=== PATIENT | female | born 1960 | race Caucasian/White ===

== ENCOUNTER 2018-10-09 13:30 | Inpatient (IN) | payer OTHER, MEDICAID ==
[2018-10-04 14:22] LABS: CREATININE 0.44 mg/dL (0.55-1.30); POTASSIUM 3.5 mmol/L (3.5-5.1)
[2018-10-04 14:23] LABS: BASOPHILS # (AUTO) 0.3 K/uL (0.0-0.2); BASOPHILS % (AUTO) 1.8 % (0.0-2.0); EOSINOPHILS # (AUTO) 0.1 K/uL (0.0-0.4); EOSINOPHILS % (AUTO) 0.7 % (0.0-4.0); HEMATOCRIT 45.8 % (36-48); HEMOGLOBIN 15.3 g/dL (12.0-16.0); LYMPHOCYTES # (AUTO) 5.1 K/uL (1.0-5.5); LYMPHOCYTES % (AUTO) 33.2 % (20.5-51.5); MEAN CORPUSCULAR HEMOGLOBIN 33 pg (27-31); MEAN CORPUSCULAR HGB CONC 33 % (32-36); MEAN CORPUSCULAR VOLUME 98 fL (79.0-98.0); MONOCYTES # (AUTO) 1.5 K/uL (0.0-1.0); MONOCYTES % (AUTO) 9.7 % (1.7-9.3); NEUTROPHILS # (AUTO) 8.3 K/uL (1.8-7.7); NEUTROPHILS % (AUTO) 54.6 % (40.0-70.0); PLATELET COUNT (AUTO) 272 K/uL (130-430); RED BLOOD CELL COUNT(AUTO) 4.68 MIL/uL (4.2-6.2); RED CELL DISTRIBUTION WIDTH 13.3 % (9.0-15.0); WHITE BLOOD COUNT (AUTO) 15.3 K/uL (4.8-10.8)
[~2018-10-09] VITALS: Ht 165.1 cm; Wt 55.3 kg
[2018-10-09 22:15] VITALS: BP_SYST 111
[2018-10-09 23:00] VITALS: BP_SYST 111
[2018-10-10] VITALS (7 sets, daily range): BP systolic 102–135
[2018-10-10] MEDS ORDERED: LORazepam 2 MG/ML VIAL IVP PRN (00:30)
[2018-10-10 01:36] LABS: BASOPHILS # (AUTO) 0.1 K/uL (0.0-0.2); BASOPHILS % (AUTO) 0.5 % (0.0-2.0); EOSINOPHILS % (AUTO) 0.2 % (0.0-4.0); HEMATOCRIT 41.8 % (36-48); LYMPHOCYTES # (AUTO) 3.2 K/uL (1.0-5.5); LYMPHOCYTES % (AUTO) 27.8 % (20.5-51.5); MEAN CORPUSCULAR HEMOGLOBIN 33 pg (27-31); MEAN CORPUSCULAR HGB CONC 34 % (32-36); MEAN CORPUSCULAR VOLUME 97 fL (79.0-98.0); MONOCYTES # (AUTO) 1.2 K/uL (0.0-1.0); MONOCYTES % (AUTO) 10.8 % (1.7-9.3); NEUTROPHILS # (AUTO) 6.9 K/uL (1.8-7.7); NEUTROPHILS % (AUTO) 60.7 % (40.0-70.0); PLATELET COUNT (AUTO) 285 K/uL (130-430); RED BLOOD CELL COUNT(AUTO) 4.29 MIL/uL (4.2-6.2); RED CELL DISTRIBUTION WIDTH 13.8 % (9.0-15.0); WHITE BLOOD COUNT (AUTO) 11.4 K/uL (4.8-10.8)
[2018-10-10 02:03] LABS: PROTHROMBIN TIME 10.3 SECS (9.5-12.5)
[2018-10-10 02:07] LABS: ALBUMIN 2.7 g/dL (3.4-4.8); CALCIUM 8.5 mg/dL (8.4-11.0); CREATININE 0.41 mg/dL (0.55-1.30); POTASSIUM 3.6 mmol/L (3.5-5.1); TOTAL BILIRUBIN 0.6 mg/dL (0.0-1.0)
[2018-10-10] MEDS: KCL 20 mEq in NS 1000 mL 1,000 ML IV SCH ×2 (02:14→13:55)
[2018-10-10] MEDS: ALBUTEROL SULFATE 0.083% 2.5 MG/3 ML VIAL.NEB INH SCH ×6 (02:27→23:27)
[2018-10-10] MEDS: ALBUTEROL SULFATE 0.083% 2.5 MG/3 ML VIAL.NEB INH PRN ×2 (04:15→05:56)
[2018-10-10] MEDS: methylPREDNISolone SOD SUCC/PF 62.5 MG/ML VIAL IVP SCH ×2 (05:05→12:13)
[2018-10-10 07:54] LABS: BILIRUBIN,URINE NEGATIVE (NEGATIVE); BLOOD, URINE NEGATIVE (NEGATIVE); CLARITY/URINE CLEAR (CLEAR); COLOR,URINE YELLOW (YELLOW); GLUCOSE,URINE NEGATIVE (NEGATIVE); KETONES,URINE NEGATIVE (NEGATIVE); LEUKOCYTE ESTERASE ,URINE NEGATIVE (NEGATIVE); NITRITE, URINE NEGATIVE (NEGATIVE); PROTEIN URINE NEGATIVE (NEGATIVE); UROBILINOGEN,URINE 0.2 (0.2-1.0)
[2018-10-10] MEDS: FLUDROCORTISONE ACETATE 0.1 MG TABLET( FLORINEF) PO SCH (08:55)
[2018-10-10] MEDS: PREDNISONE 10 MG TABLET PO SCH (08:56)
[2018-10-10] MEDS: SODIUM CHLORIDE 500 MG TABLET PO SCH ×2 (08:56→21:55)
[2018-10-10] MEDS ORDERED: PROPOFOL 200MG/ 20ML VIAL (DIPRIVAN) IV ONE (16:30)
[2018-10-10] MEDS ORDERED: MIDAZOLAM HCL 5 MG/ML VIAL (VERSED) IV ONE (16:30)
[2018-10-10] MEDS ORDERED: LIDOCAINE/EPI 1% 1:100000 20 ML VIAL INJ ONE (16:30)
[2018-10-10] MEDS ORDERED: fentaNYL CITRATE/PF 100 MCG/2 ML AMP ONE (16:30)
[2018-10-10] MEDS ORDERED: SEVOFLURANE 15 MIN GAS INH ONE (16:30)
[2018-10-10] MEDS ORDERED: NS 1000 ML IV.SOLN IV ONE (16:30)
[2018-10-10] MEDS ORDERED: ROCURONIUM BROMIDE 10 MG/ML (ZEMURON) ONE (16:30)
[2018-10-10] MEDS ORDERED: GLYCOPYRROLATE 0.2 MG/ML VIAL ONE (16:30)
[2018-10-10] MEDS ORDERED: ONDANSETRON HCL 4 MG/2 ML VIAL ONE (16:30)
[2018-10-10] MEDS ORDERED: NS IRRIG SOLN 1000 ML IR ONE (16:30)
[2018-10-10] MEDS ORDERED: NEOSTIGMINE METHYLSULFATE 1 MG/ML, 10 ML VIAL ONE (16:30)
[2018-10-10] MEDS ORDERED: MEPERIDINE HCL/PF 50 MG/ML AMP IVP ONE (17:00)
[2018-10-10] MEDS ORDERED: MEPERIDINE HCL/PF 50 MG/ML AMP ONE (17:06)
[2018-10-10] MEDS ORDERED: HYDROcodone/ACETAMIN 5-325 MG TAB (NORCO/ VICODIN) PO PRN ×2 (21:45)
[2018-10-11] VITALS (22 sets, daily range): BP systolic 91–146
[2018-10-11] MEDS: KCL 20 mEq in NS 1000 mL 1,000 ML IV SCH (02:55)
[2018-10-11] MEDS: ALBUTEROL SULFATE 0.083% 2.5 MG/3 ML VIAL.NEB INH SCH ×6 (03:00→23:50)
[2018-10-11] MEDS: ALBUTEROL SULFATE 0.083% 2.5 MG/3 ML VIAL.NEB INH PRN (05:10)
[2018-10-11] MEDS: methylPREDNISolone SOD SUCC/PF 62.5 MG/ML VIAL IVP SCH ×2 (05:39)
[2018-10-11 06:47] LABS: HEMATOCRIT 43.2 % (36-48); HEMOGLOBIN 13.7 g/dL (12.0-16.0); MEAN CORPUSCULAR HEMOGLOBIN 31 pg (27-31); MEAN CORPUSCULAR HGB CONC 32 % (32-36); MEAN CORPUSCULAR VOLUME 98 fL (79.0-98.0); PLATELET COUNT (AUTO) 332 K/uL (130-430); RED BLOOD CELL COUNT(AUTO) 4.42 MIL/uL (4.2-6.2); RED CELL DISTRIBUTION WIDTH 14.3 % (9.0-15.0)
[2018-10-11 07:03] LABS: ALBUMIN 2.9 g/dL (3.4-4.8); CALCIUM 8.5 mg/dL (8.4-11.0); CREATININE 0.61 mg/dL (0.55-1.30); POTASSIUM 3.4 mmol/L (3.5-5.1); TOTAL BILIRUBIN 0.9 mg/dL (0.0-1.0); URIC ACID 2.6 mg/dL (2.4-7.0)
[2018-10-11 07:08] LABS: WHITE BLOOD COUNT (AUTO) 23.4 K/uL (4.8-10.8)
[2018-10-11] MEDS: PREDNISONE 10 MG TABLET PO SCH (08:15)
[2018-10-11] MEDS: FLUDROCORTISONE ACETATE 0.1 MG TABLET( FLORINEF) PO SCH (08:15)
[2018-10-11 08:33] LABS: ATYPICAL LYMPHOCYTES % 0 % (0-0); BAND % (MANUAL) 6 % (0-6); BASOPHILS % (MANUAL) 0 % (0-2); EOSINOPHILS % (MANUAL) 0 % (0-7); LYMPHOCYTES % (MANUAL) 14 % (20-46); MONOCYTES % (MANUAL) 9 % (0-11)
[2018-10-11] MEDS: SODIUM CHLORIDE 500 MG TABLET PO SCH ×2 (09:27→20:52)
[2018-10-11] MEDS ORDERED: POTASSIUM CHLORIDE 20 MEQ/PKT PACKET PO ONE (14:30)
[2018-10-11] MEDS: methylPREDNISolone SOD SUCC 40 MG/ML VIAL IVP SCH (20:52)
[2018-10-11] MEDS: MORPHINE 4 MG/ML INJ. SYRINGE IVP PRN (23:32)
[2018-10-12] VITALS (12 sets, daily range): BP systolic 101–126
[2018-10-12] MEDS: ALBUTEROL SULFATE 0.083% 2.5 MG/3 ML VIAL.NEB INH SCH ×6 (04:01→23:44)
[2018-10-12 05:45] LABS: BASOPHILS % (AUTO) 0.1 % (0.0-2.0); HEMATOCRIT 41.1 % (36-48); HEMOGLOBIN 13.8 g/dL (12.0-16.0); LYMPHOCYTES # (AUTO) 1.7 K/uL (1.0-5.5); LYMPHOCYTES % (AUTO) 9.4 % (20.5-51.5); MEAN CORPUSCULAR HEMOGLOBIN 33 pg (27-31); MEAN CORPUSCULAR HGB CONC 34 % (32-36); MEAN CORPUSCULAR VOLUME 99 fL (79.0-98.0); MONOCYTES % (AUTO) 5.8 % (1.7-9.3); NEUTROPHILS # (AUTO) 15.1 K/uL (1.8-7.7); NEUTROPHILS % (AUTO) 84.7 % (40.0-70.0); PLATELET COUNT (AUTO) 277 K/uL (130-430); RED BLOOD CELL COUNT(AUTO) 4.16 MIL/uL (4.2-6.2); RED CELL DISTRIBUTION WIDTH 13.8 % (9.0-15.0); WHITE BLOOD COUNT (AUTO) 17.8 K/uL (4.8-10.8)
[2018-10-12 05:49] LABS: ALBUMIN 2.8 g/dL (3.4-4.8); CALCIUM 8.6 mg/dL (8.4-11.0); CREATININE 0.41 mg/dL (0.55-1.30); POTASSIUM 4.4 mmol/L (3.5-5.1); TOTAL BILIRUBIN 0.7 mg/dL (0.0-1.0)
[2018-10-12] MEDS: SODIUM CHLORIDE 500 MG TABLET PO SCH ×2 (08:39→20:56)
[2018-10-12] MEDS: FLUDROCORTISONE ACETATE 0.1 MG TABLET( FLORINEF) PO SCH (08:39)
[2018-10-12] MEDS: methylPREDNISolone SOD SUCC 40 MG/ML VIAL IVP SCH ×2 (08:39→20:56)
[2018-10-12] MEDS: MORPHINE 4 MG/ML INJ. SYRINGE IVP PRN (21:47)
[2018-10-13 00:10] VITALS: BP_SYST 121; BP_SYST 138
[2018-10-13 06:46] LABS: CREATININE 0.3 mg/dL (0.55-1.30); POTASSIUM 3.5 mmol/L (3.5-5.1)
[2018-10-13 06:56] LABS: BASOPHILS # (AUTO) 0.2 K/uL (0.0-0.2); BASOPHILS % (AUTO) 1.4 % (0.0-2.0); EOSINOPHILS % (AUTO) 0.1 % (0.0-4.0); HEMATOCRIT 37.5 % (36-48); HEMOGLOBIN 12.6 g/dL (12.0-16.0); LYMPHOCYTES # (AUTO) 1.3 K/uL (1.0-5.5); LYMPHOCYTES % (AUTO) 7.5 % (20.5-51.5); MEAN CORPUSCULAR HEMOGLOBIN 33 pg (27-31); MEAN CORPUSCULAR HGB CONC 34 % (32-36); MEAN CORPUSCULAR VOLUME 99 fL (79.0-98.0); MONOCYTES # (AUTO) 1.4 K/uL (0.0-1.0); MONOCYTES % (AUTO) 8.3 % (1.7-9.3); NEUTROPHILS # (AUTO) 13.9 K/uL (1.8-7.7); NEUTROPHILS % (AUTO) 82.7 % (40.0-70.0); PLATELET COUNT (AUTO) 261 K/uL (130-430); RED BLOOD CELL COUNT(AUTO) 3.81 MIL/uL (4.2-6.2); RED CELL DISTRIBUTION WIDTH 13.8 % (9.0-15.0); WHITE BLOOD COUNT (AUTO) 16.8 K/uL (4.8-10.8)
[2018-10-13 06:57] LABS: ALBUMIN 2.4 g/dL (3.4-4.8); TOTAL BILIRUBIN 0.6 mg/dL (0.0-1.0)
[2018-10-13 07:08] VITALS: BP_SYST 121
[2018-10-13] MEDS: ALBUTEROL SULFATE 0.083% 2.5 MG/3 ML VIAL.NEB INH SCH ×5 (07:25→23:00)
[2018-10-13 08:00] VITALS: BP_SYST 111
[2018-10-13] MEDS: SODIUM CHLORIDE 500 MG TABLET PO SCH ×2 (08:31→21:08)
[2018-10-13] MEDS: methylPREDNISolone SOD SUCC 40 MG/ML VIAL IVP SCH ×2 (08:31→21:07)
[2018-10-13] MEDS: FLUDROCORTISONE ACETATE 0.1 MG TABLET( FLORINEF) PO SCH (08:31)
[2018-10-13] MEDS: MORPHINE 4 MG/ML INJ. SYRINGE IVP PRN ×2 (09:20→21:09)
[2018-10-13 12:36] VITALS: BP_SYST 112
[2018-10-13 16:30] VITALS: BP_SYST 139
[2018-10-13 20:00] VITALS: BP_SYST 120
[2018-10-14 00:40] VITALS: BP_SYST 130
[2018-10-14] MEDS: ALBUTEROL SULFATE 0.083% 2.5 MG/3 ML VIAL.NEB INH SCH ×6 (03:00→23:38)
[2018-10-14 06:55] LABS: BASOPHILS % (AUTO) 0.2 % (0.0-2.0); EOSINOPHILS % (AUTO) 0.1 % (0.0-4.0); HEMOGLOBIN 13.8 g/dL (12.0-16.0); LYMPHOCYTES # (AUTO) 2.3 K/uL (1.0-5.5); LYMPHOCYTES % (AUTO) 13.7 % (20.5-51.5); MEAN CORPUSCULAR HEMOGLOBIN 33 pg (27-31); MEAN CORPUSCULAR HGB CONC 34 % (32-36); MEAN CORPUSCULAR VOLUME 97 fL (79.0-98.0); MONOCYTES # (AUTO) 1.2 K/uL (0.0-1.0); MONOCYTES % (AUTO) 7.4 % (1.7-9.3); NEUTROPHILS # (AUTO) 13.2 K/uL (1.8-7.7); NEUTROPHILS % (AUTO) 78.6 % (40.0-70.0); PLATELET COUNT (AUTO) 289 K/uL (130-430); RED BLOOD CELL COUNT(AUTO) 4.15 MIL/uL (4.2-6.2); RED CELL DISTRIBUTION WIDTH 13.6 % (9.0-15.0); WHITE BLOOD COUNT (AUTO) 16.7 K/uL (4.8-10.8)
[2018-10-14 07:12] LABS: CALCIUM 8.3 mg/dL (8.4-11.0); CREATININE 0.44 mg/dL (0.55-1.30); POTASSIUM 3.6 mmol/L (3.5-5.1)
[2018-10-14 07:21] LABS: ALBUMIN 2.5 g/dL (3.4-4.8); TOTAL BILIRUBIN 0.6 mg/dL (0.0-1.0)
[2018-10-14 07:52] VITALS: BP_SYST 122
[2018-10-14] MEDS: methylPREDNISolone SOD SUCC 40 MG/ML VIAL IVP SCH ×2 (08:01→21:17)
[2018-10-14] MEDS: SODIUM CHLORIDE 500 MG TABLET PO SCH ×2 (08:01→21:17)
[2018-10-14] MEDS: FLUDROCORTISONE ACETATE 0.1 MG TABLET( FLORINEF) PO SCH (08:01)
[2018-10-14 12:00] VITALS: BP_SYST 116
[2018-10-14 16:00] VITALS: BP_SYST 113
[2018-10-14 20:46] VITALS: BP_SYST 127
[2018-10-14 23:52] VITALS: BP_SYST 130
[2018-10-15] MEDS: ALBUTEROL SULFATE 0.083% 2.5 MG/3 ML VIAL.NEB INH SCH ×6 (03:55→23:15)
[2018-10-15 07:13] LABS: BASOPHILS % (AUTO) 0.1 % (0.0-2.0); EOSINOPHILS % (AUTO) 0.1 % (0.0-4.0); HEMATOCRIT 39.8 % (36-48); HEMOGLOBIN 13.6 g/dL (12.0-16.0); LYMPHOCYTES # (AUTO) 1.9 K/uL (1.0-5.5); LYMPHOCYTES % (AUTO) 13.8 % (20.5-51.5); MEAN CORPUSCULAR HEMOGLOBIN 33 pg (27-31); MEAN CORPUSCULAR HGB CONC 34 % (32-36); MEAN CORPUSCULAR VOLUME 96 fL (79.0-98.0); MONOCYTES # (AUTO) 1.1 K/uL (0.0-1.0); MONOCYTES % (AUTO) 8.2 % (1.7-9.3); NEUTROPHILS # (AUTO) 10.5 K/uL (1.8-7.7); NEUTROPHILS % (AUTO) 77.8 % (40.0-70.0); PLATELET COUNT (AUTO) 298 K/uL (130-430); RED BLOOD CELL COUNT(AUTO) 4.16 MIL/uL (4.2-6.2); RED CELL DISTRIBUTION WIDTH 13.3 % (9.0-15.0); WHITE BLOOD COUNT (AUTO) 13.5 K/uL (4.8-10.8)
[2018-10-15 07:39] LABS: ALBUMIN 2.5 g/dL (3.4-4.8); CALCIUM 8.5 mg/dL (8.4-11.0); CREATININE 0.4 mg/dL (0.55-1.30); POTASSIUM 3.5 mmol/L (3.5-5.1); TOTAL BILIRUBIN 0.4 mg/dL (0.0-1.0)
[2018-10-15 08:00] VITALS: BP_SYST 109
[2018-10-15] MEDS: FLUDROCORTISONE ACETATE 0.1 MG TABLET( FLORINEF) PO SCH (09:08)
[2018-10-15] MEDS: SODIUM CHLORIDE 500 MG TABLET PO SCH ×2 (09:08→20:55)
[2018-10-15] MEDS: methylPREDNISolone SOD SUCC 40 MG/ML VIAL IVP SCH (09:09)
[2018-10-15 12:00] VITALS: BP_SYST 114
[2018-10-15] MEDS: MORPHINE 4 MG/ML INJ. SYRINGE IVP PRN ×2 (14:25→21:02)
[2018-10-15 17:06] VITALS: BP_SYST 107
[2018-10-15 19:00] VITALS: BP_SYST 106
[2018-10-15 20:00] VITALS: BP_SYST 106
[2018-10-15 23:22] VITALS: BP_SYST 110
[2018-10-16] MEDS: ALBUTEROL SULFATE 0.083% 2.5 MG/3 ML VIAL.NEB INH SCH ×6 (02:50→23:00)
[2018-10-16] MEDS: MORPHINE 4 MG/ML INJ. SYRINGE IVP PRN ×3 (05:52→23:22)
[2018-10-16 07:03] VITALS: BP_SYST 110
[2018-10-16] MEDS: SODIUM CHLORIDE 500 MG TABLET PO SCH ×2 (08:17→20:38)
[2018-10-16] MEDS: FLUDROCORTISONE ACETATE 0.1 MG TABLET( FLORINEF) PO SCH (08:17)
[2018-10-16] MEDS: PREDNISONE 10 MG TABLET PO SCH (08:17)
[2018-10-16 08:19] VITALS: BP_SYST 109; BP_SYST 125
[2018-10-16 11:09] VITALS: BP_SYST 109
[2018-10-16 16:00] VITALS: BP_SYST 134
[2018-10-16 20:00] VITALS: BP_SYST 109
[2018-10-17] MEDS: ALBUTEROL SULFATE 0.083% 2.5 MG/3 ML VIAL.NEB INH PRN (01:39)
[2018-10-17 02:02] VITALS: BP_SYST 105
[2018-10-17] MEDS: ALBUTEROL SULFATE 0.083% 2.5 MG/3 ML VIAL.NEB INH SCH ×6 (03:00→23:13)
[2018-10-17 08:03] VITALS: BP_SYST 105
[2018-10-17] MEDS: SODIUM CHLORIDE 500 MG TABLET PO SCH ×2 (08:45→21:23)
[2018-10-17] MEDS: FLUDROCORTISONE ACETATE 0.1 MG TABLET( FLORINEF) PO SCH (08:45)
[2018-10-17] MEDS: PREDNISONE 10 MG TABLET PO SCH (08:45)
[2018-10-17] MEDS: MORPHINE 4 MG/ML INJ. SYRINGE IVP PRN ×3 (08:53→21:34)
[2018-10-17 17:00] VITALS: BP_SYST 104
[2018-10-17 20:10] VITALS: BP_SYST 129
[2018-10-18 01:10] VITALS: BP_SYST 115
[2018-10-18] MEDS: ALBUTEROL SULFATE 0.083% 2.5 MG/3 ML VIAL.NEB INH SCH ×6 (03:00→23:44)
[2018-10-18] MEDS: MORPHINE 4 MG/ML INJ. SYRINGE IVP PRN ×3 (03:50→20:37)
[2018-10-18] MEDS: FLUDROCORTISONE ACETATE 0.1 MG TABLET( FLORINEF) PO SCH (08:41)
[2018-10-18] MEDS: PREDNISONE 10 MG TABLET PO SCH (08:42)
[2018-10-18] MEDS: SODIUM CHLORIDE 500 MG TABLET PO SCH ×2 (08:44→20:36)
[2018-10-18 12:50] VITALS: BP_SYST 100
[2018-10-18 14:15] LABS: CALCIUM 8.1 mg/dL (8.4-11.0); CREATININE 0.54 mg/dL (0.55-1.30); POTASSIUM 3.8 mmol/L (3.5-5.1)
[2018-10-18 14:19] LABS: BASOPHILS # (AUTO) 0.1 K/uL (0.0-0.2); BASOPHILS % (AUTO) 0.6 % (0.0-2.0); EOSINOPHILS % (AUTO) 0.2 % (0.0-4.0); HEMATOCRIT 40.4 % (36-48); HEMOGLOBIN 13.6 g/dL (12.0-16.0); LYMPHOCYTES # (AUTO) 1.5 K/uL (1.0-5.5); LYMPHOCYTES % (AUTO) 13.6 % (20.5-51.5); MEAN CORPUSCULAR HEMOGLOBIN 33 pg (27-31); MEAN CORPUSCULAR HGB CONC 34 % (32-36); MEAN CORPUSCULAR VOLUME 97 fL (79.0-98.0); MONOCYTES # (AUTO) 0.6 K/uL (0.0-1.0); MONOCYTES % (AUTO) 5.6 % (1.7-9.3); NEUTROPHILS # (AUTO) 8.8 K/uL (1.8-7.7); PLATELET COUNT (AUTO) 322 K/uL (130-430); RED BLOOD CELL COUNT(AUTO) 4.16 MIL/uL (4.2-6.2); RED CELL DISTRIBUTION WIDTH 13.4 % (9.0-15.0); WHITE BLOOD COUNT (AUTO) 10.9 K/uL (4.8-10.8)
[2018-10-18 14:21] LABS: ALBUMIN 2.5 g/dL (3.4-4.8); TOTAL BILIRUBIN 0.6 mg/dL (0.0-1.0)
[2018-10-18 18:28] VITALS: BP_SYST 108
[2018-10-18 19:55] VITALS: BP_SYST 104
[2018-10-18 23:59] VITALS: BP_SYST 126
[2018-10-19] MEDS: ALBUTEROL SULFATE 0.083% 2.5 MG/3 ML VIAL.NEB INH SCH ×5 (03:30→23:48)
[2018-10-19] MEDS ORDERED: PREDNISONE 5 MG TABLET PO ONE (09:00)
[2018-10-19 09:12] VITALS: BP_SYST 104
[2018-10-19] MEDS: SODIUM CHLORIDE 500 MG TABLET PO SCH ×2 (09:18→20:56)
[2018-10-19] MEDS: FLUDROCORTISONE ACETATE 0.1 MG TABLET( FLORINEF) PO SCH (09:18)
[2018-10-19] MEDS: MORPHINE 4 MG/ML INJ. SYRINGE IVP PRN ×2 (09:19→18:12)
[2018-10-19 13:24] VITALS: BP_SYST 107
[2018-10-19 16:38] VITALS: BP_SYST 108
[2018-10-19 21:00] VITALS: BP_SYST 117
[2018-10-20 01:00] VITALS: BP_SYST 119
[2018-10-20] MEDS: ALBUTEROL SULFATE 0.083% 2.5 MG/3 ML VIAL.NEB INH SCH ×4 (03:41→15:32)
[2018-10-20 04:04] VITALS: BP_SYST 122
[2018-10-20] MEDS: MORPHINE 4 MG/ML INJ. SYRINGE IVP PRN ×2 (04:05→11:44)
[2018-10-20 08:30] VITALS: BP_SYST 106
[2018-10-20] MEDS: FLUDROCORTISONE ACETATE 0.1 MG TABLET( FLORINEF) PO SCH (09:49)
[2018-10-20] MEDS: SODIUM CHLORIDE 500 MG TABLET PO SCH (09:49)
[2018-10-20 12:21] VITALS: BP_SYST 112
[2018-10-20 15:22] VITALS: BP_SYST 97
[2018-10-20 16:28] VITALS: BP_SYST 97
== END 2018-10-20 16:59 | DRG 11 ==
LOC: SMU 22:18 → STU 23:05 → EDSTATUS 10-10 13:30 → SIC 10-10 16:37 → STU 10-12 06:51 → SMU 10-15 18:26
PROVIDERS: ADMIT Otolaryngology; ATTEND Internal Medicine Infectious Disease
PROC: 0CBT8ZX Excision of Right Vocal Cord, Via Natural or Artificial Opening Endoscopic, Diagnostic (ICD-10-PCS; 2018-10-10)
PROC: 0B110F4 Bypass Trachea to Cutaneous with Tracheostomy Device, Open Approach (ICD-10-PCS; principal; 2018-10-10 13:30)
DX: C32.0 Malignant neoplasm of glottis (principal); E43 Unspecified severe protein-calorie malnutrition; E22.2 Syndrome of inappropriate secretion of antidiuretic hormone; J44.1 Chronic obstructive pulmonary disease with (acute) exacerbation; J38.01 Paralysis of vocal cords and larynx, unilateral; D72.829 Elevated white blood cell count, unspecified; F41.9 Anxiety disorder, unspecified; T38.0X5A Adverse effect of glucocorticoids and synthetic analogues, initial encounter; Z87.891 Personal history of nicotine dependence; Z99.81 Dependence on supplemental oxygen; Y92.89 Other specified places as the place of occurrence of the external cause; Z68.20 Body mass index [BMI] 20.0-20.9, adult; Z92.21 Personal history of antineoplastic chemotherapy
CPT/HCPCS: 36415; 71045; 71046-TC; 80048; 80053; 81003; 82962; 83735-TC; 83930-TC; 84302-TC; 84550-TC; 84703; 85007; 85025; 85027; 85610-TC; 85730-TC; 86886; 86900; 86901; 87081; 88305; 93005; 93923; 94640; 94760; G0378; J1030; J2060; J2175; J2250; J2270; J2405; J2704; J2710; J2930; J3010; J3480; J3490; J7030; J7512; J7613

== ENCOUNTER 2018-10-24 16:42 | Emergency (ER) | payer OTHER, MEDICAID ==
[~2018-10-24] VITALS: Ht 160 cm; Wt 56.7 kg
[2018-10-24 16:50] VITALS: BP_SYST 96
--- NOTE | 2018-10-24 16:50 | NUR ---
patient AOx4 c/o of intercannula clog. patient is post-op trach insertion x 2 weeks. patient has homehealth for supplies, however, she does not know where her supplies are. patient has daughter at bedside and denies any other complaint or injury at this time.
--- NOTE | 2018-10-24 16:51 | NUR ---
Arrived as a walk in with compliant of inner cannula clogging with mucous. Patient states that she does not have any cannulas at home. Patient to ER bed 2 to gown for evaluation. Side rails up. Report given to Evelyn PHELPS.
--- NOTE | 2018-10-24 16:55 | NUR ---
RUPERT Moreno at bedside examining patient.
--- NOTE | 2018-10-24 17:00 | NUR ---
RT at bedside.
[2018-10-24 17:22] VITALS: BP_SYST 102
--- NOTE | 2018-10-24 17:22 | NUR ---
Patient given written and verbal discharge instructions and verbalizes understanding. ER MD discussed with patient the results and treatment provided. Patient in stable condition. ID arm band removed. No Rx given. Patient educated on pain management and to follow up with PMD. Pain Scale 0/10. Opportunity for questions provided and answered. Medication side effect fact sheet provided.
== END 2018-10-24 17:22 | disposition home or self-care (01) ==
LOC: SED 16:42
DX: Z43.0 Encounter for attention to tracheostomy (principal)
CPT/HCPCS: 99281

== ENCOUNTER 2019-08-11 16:55 | Inpatient (IN) | payer OTHER, MEDICAID ==
[~2019-08-11] VITALS: Ht 165.1 cm; Wt 47.2 kg
[2019-08-11 16:55] VITALS: BP_SYST 94
[2019-08-11 17:50] LABS: BASOPHILS % (AUTO) 0.3 % (0.0-2.0); EOSINOPHILS # (AUTO) 0.5 K/uL (0.0-0.4); EOSINOPHILS % (AUTO) 3.9 % (0.0-4.0); HEMATOCRIT 38.3 % (36-48); HEMOGLOBIN 13.1 g/dL (12.0-16.0); LYMPHOCYTES # (AUTO) 1.8 K/uL (1.0-5.5); LYMPHOCYTES % (AUTO) 13.3 % (20.5-51.5); MEAN CORPUSCULAR HEMOGLOBIN 33 pg (27-31); MEAN CORPUSCULAR HGB CONC 34 % (32-36); MEAN CORPUSCULAR VOLUME 97 fL (79.0-98.0); MONOCYTES # (AUTO) 1.2 K/uL (0.0-1.0); NEUTROPHILS # (AUTO) 9.8 K/uL (1.8-7.7); NEUTROPHILS % (AUTO) 73.5 % (40.0-70.0); PLATELET COUNT (AUTO) 560 K/uL (130-430); RED BLOOD CELL COUNT(AUTO) 3.94 MIL/uL (4.2-6.2); RED CELL DISTRIBUTION WIDTH 12.9 % (9.0-15.0); WHITE BLOOD COUNT (AUTO) 13.4 K/uL (4.8-10.8)
[2019-08-11 18:06] LABS: ALBUMIN 2.6 g/dL (3.4-4.8); CREATININE 0.51 mg/dL (0.55-1.30); POTASSIUM 3.3 mmol/L (3.5-5.1); TOTAL BILIRUBIN 0.5 mg/dL (0.0-1.0)
[2019-08-11] MEDS ORDERED: NACL 0.9% 1,000 ML IV ONE (18:15)
[2019-08-11] MEDS ORDERED: VANCOMYCIN HCL 1,000 MG in NS 250 ML IV ONE (18:15)
[2019-08-11] MEDS ORDERED: PIPERACILLIN/TAZO 3.375 GM in NS 50 ML IV ONE (18:15)
[2019-08-11 18:24] LABS: CALCIUM 8.8 mg/dL (8.4-11.0)
[2019-08-11] MEDS ORDERED: POTASSIUM CHLORIDE 20 MEQ/PKT PACKET GT ONE (18:30)
[2019-08-11 18:33] LABS: BILIRUBIN,URINE NEGATIVE (NEGATIVE); BLOOD, URINE NEGATIVE (NEGATIVE); COLOR,URINE YELLOW (YELLOW); GLUCOSE,URINE NEGATIVE (NEGATIVE); KETONES,URINE NEGATIVE (NEGATIVE); LEUKOCYTE ESTERASE ,URINE NEGATIVE (NEGATIVE); NITRITE, URINE NEGATIVE (NEGATIVE); PROTEIN URINE NEGATIVE (NEGATIVE)
[2019-08-11 18:34] LABS: CLARITY/URINE CLEAR (CLEAR)
[2019-08-11] MEDS ORDERED: PIPERACILLIN/TAZOBACTAM 3.375 GM/VIAL (ZOSYN) IV ONE (18:41)
[2019-08-11] MEDS ORDERED: VANCOMYCIN HCL 1000 MG/VIAL IV ONE (18:42)
[2019-08-11] MEDS ORDERED: NS 500 ML IV ONE (19:00)
[2019-08-11 21:34] VITALS: BP_SYST 98
[2019-08-11] MEDS ORDERED: ONDANSETRON HCL 4 MG/2 ML VIAL IVP PRN (22:45)
[2019-08-11] MEDS ORDERED: ACETAMINOPHEN 325 MG TABLET GT PRN (22:45)
[2019-08-11] MEDS ORDERED: LORazepam 2 MG/ML VIAL IVP PRN (22:45)
[2019-08-11] MEDS ORDERED: ALBUTEROL SULFATE 0.083% 2.5 MG/3 ML VIAL.NEB INH PRN (22:45)
[2019-08-11] MEDS: IPRATROPIUM BROM 0.5 MG/2.5 ML VIAL.NEB (ATROVENT) INH SCH (23:50)
[2019-08-12] VITALS (7 sets, daily range): BP systolic 91–118
[2019-08-12] MEDS: IPRATROPIUM BROM 0.5 MG/2.5 ML VIAL.NEB (ATROVENT) INH SCH ×6 (03:00→23:30)
[2019-08-12] MEDS: NORMAL SALINE 5 ML DISP.SYRIN IVF SCH ×3 (05:47→21:19)
[2019-08-12 06:42] LABS: BASOPHILS # (AUTO) 0.1 K/uL (0.0-0.2); BASOPHILS % (AUTO) 0.5 % (0.0-2.0); EOSINOPHILS # (AUTO) 0.7 K/uL (0.0-0.4); EOSINOPHILS % (AUTO) 4.8 % (0.0-4.0); HEMATOCRIT 35.6 % (36-48); HEMOGLOBIN 12.3 g/dL (12.0-16.0); LYMPHOCYTES # (AUTO) 1.2 K/uL (1.0-5.5); LYMPHOCYTES % (AUTO) 8.7 % (20.5-51.5); MEAN CORPUSCULAR HEMOGLOBIN 34 pg (27-31); MEAN CORPUSCULAR HGB CONC 35 % (32-36); MEAN CORPUSCULAR VOLUME 97 fL (79.0-98.0); MONOCYTES # (AUTO) 1.2 K/uL (0.0-1.0); MONOCYTES % (AUTO) 8.4 % (1.7-9.3); NEUTROPHILS % (AUTO) 77.6 % (40.0-70.0); PLATELET COUNT (AUTO) 522 K/uL (130-430); RED BLOOD CELL COUNT(AUTO) 3.66 MIL/uL (4.2-6.2); RED CELL DISTRIBUTION WIDTH 12.8 % (9.0-15.0); WHITE BLOOD COUNT (AUTO) 14.1 K/uL (4.8-10.8)
[2019-08-12 07:24] LABS: CALCIUM 8.1 mg/dL (8.4-11.0); CREATININE 0.47 mg/dL (0.55-1.30); POTASSIUM 3.4 mmol/L (3.5-5.1)
[2019-08-12] MEDS: ASPIRIN 81 MG TAB.CHEW PO SCH (09:39)
[2019-08-12] MEDS ORDERED: ENOXAPARIN SODIUM 40 MG/0.4 ML SYRINGE SUBCUT ONE (10:00)
[2019-08-12] MEDS ORDERED: methylPREDNISolone SOD SUCC 40 MG/ML VIAL IVP ONE (10:00)
[2019-08-12] MEDS ORDERED: IOHEXOL 100 ML IV ONE (12:16)
[2019-08-12] MEDS: methylPREDNISolone SOD SUCC 40 MG/ML VIAL IVP SCH (21:17)
[2019-08-12] MEDS ORDERED: POTASSIUM CHLORIDE 20 MEQ/PKT PACKET PO ONE (23:30)
[2019-08-13] VITALS (7 sets, daily range): BP systolic 94–98
[2019-08-13] MEDS ORDERED: PIPERACILLIN/TAZOBACTAM 4.5 GM/VIAL (ZOSYN) IV ONE (05:59)
[2019-08-13] MEDS: PIPERACILLIN/TAZO 4.5GM/DEX-IS 100 ML IV SCH ×3 (06:09→22:09)
[2019-08-13] MEDS: NORMAL SALINE 5 ML DISP.SYRIN IVF SCH ×3 (06:10→22:12)
[2019-08-13] MEDS: IPRATROPIUM BROM 0.5 MG/2.5 ML VIAL.NEB (ATROVENT) INH SCH ×3 (07:00→23:00)
[2019-08-13 07:27] LABS: BASOPHILS % (AUTO) 0.2 % (0.0-2.0); EOSINOPHILS # (AUTO) 0.1 K/uL (0.0-0.4); EOSINOPHILS % (AUTO) 0.8 % (0.0-4.0); HEMATOCRIT 34.9 % (36-48); HEMOGLOBIN 11.9 g/dL (12.0-16.0); LYMPHOCYTES # (AUTO) 0.6 K/uL (1.0-5.5); LYMPHOCYTES % (AUTO) 3.5 % (20.5-51.5); MEAN CORPUSCULAR HEMOGLOBIN 33 pg (27-31); MEAN CORPUSCULAR HGB CONC 34 % (32-36); MEAN CORPUSCULAR VOLUME 98 fL (79.0-98.0); MONOCYTES # (AUTO) 0.1 K/uL (0.0-1.0); MONOCYTES % (AUTO) 0.8 % (1.7-9.3); NEUTROPHILS # (AUTO) 15.2 K/uL (1.8-7.7); NEUTROPHILS % (AUTO) 94.7 % (40.0-70.0); PLATELET COUNT (AUTO) 503 K/uL (130-430); RED BLOOD CELL COUNT(AUTO) 3.57 MIL/uL (4.2-6.2); RED CELL DISTRIBUTION WIDTH 13.1 % (9.0-15.0)
[2019-08-13 08:04] LABS: ALBUMIN 2.3 g/dL (3.4-4.8); C-REACTIVE PROTEIN QUANT 3.3 mg/dL (0-0.5); CREATININE 0.54 mg/dL (0.55-1.30); POTASSIUM 4.2 mmol/L (3.5-5.1); TOTAL BILIRUBIN 0.6 mg/dL (0.0-1.0)
[2019-08-13 08:33] LABS: CALCIUM 8.2 mg/dL (8.4-11.0)
[2019-08-13] MEDS: ASPIRIN 81 MG TAB.CHEW PO SCH (08:37)
[2019-08-13] MEDS: methylPREDNISolone SOD SUCC 40 MG/ML VIAL IVP SCH ×2 (08:37→21:01)
[2019-08-13] MEDS: ENOXAPARIN SODIUM 40 MG/0.4 ML SYRINGE SUBCUT SCH (08:38)
[2019-08-13 08:40] LABS: ERYTHROCYTE SEDIMENTATION RATE 55 MM/HR (0-20)
[2019-08-13] MEDS: HYDROcodone/ACETAMIN 10-325 MG TAB GT PRN (13:39)
[2019-08-14] MEDS: IPRATROPIUM BROM 0.5 MG/2.5 ML VIAL.NEB (ATROVENT) INH SCH ×6 (02:40→23:00)
[2019-08-14] MEDS: NORMAL SALINE 5 ML DISP.SYRIN IVF SCH ×3 (05:40→22:49)
[2019-08-14] MEDS: PIPERACILLIN/TAZO 4.5GM/DEX-IS 100 ML IV SCH ×3 (05:40→22:49)
[2019-08-14 07:08] LABS: BASOPHILS % (AUTO) 0.1 % (0.0-2.0); EOSINOPHILS % (AUTO) 0.2 % (0.0-4.0); HEMATOCRIT 37.1 % (36-48); HEMOGLOBIN 12.6 g/dL (12.0-16.0); LYMPHOCYTES # (AUTO) 0.4 K/uL (1.0-5.5); LYMPHOCYTES % (AUTO) 2.2 % (20.5-51.5); MEAN CORPUSCULAR HEMOGLOBIN 33 pg (27-31); MEAN CORPUSCULAR HGB CONC 34 % (32-36); MEAN CORPUSCULAR VOLUME 98 fL (79.0-98.0); MONOCYTES # (AUTO) 0.4 K/uL (0.0-1.0); NEUTROPHILS # (AUTO) 18.9 K/uL (1.8-7.7); NEUTROPHILS % (AUTO) 95.5 % (40.0-70.0); PLATELET COUNT (AUTO) 482 K/uL (130-430); RED BLOOD CELL COUNT(AUTO) 3.77 MIL/uL (4.2-6.2); RED CELL DISTRIBUTION WIDTH 12.8 % (9.0-15.0); WHITE BLOOD COUNT (AUTO) 19.8 K/uL (4.8-10.8)
[2019-08-14 07:15] LABS: C-REACTIVE PROTEIN QUANT 1.8 mg/dL (0-0.5); CREATININE 0.51 mg/dL (0.55-1.30); POTASSIUM 3.8 mmol/L (3.5-5.1)
[2019-08-14 08:00] VITALS: BP_SYST 116
[2019-08-14 08:06] LABS: HEPATITIS A AB, IgM Negative (Negative); HEPATITIS B CORE AB, IgM Negative (Negative); HEPATITIS B SURFACE AG Negative (Negative)
[2019-08-14 08:20] LABS: ERYTHROCYTE SEDIMENTATION RATE 41 MM/HR (0-20)
[2019-08-14] MEDS: methylPREDNISolone SOD SUCC 40 MG/ML VIAL IVP SCH (09:39)
[2019-08-14] MEDS: ENOXAPARIN SODIUM 40 MG/0.4 ML SYRINGE SUBCUT SCH (09:40)
[2019-08-14] MEDS: HYDROcodone/ACETAMIN 10-325 MG TAB GT PRN ×2 (09:55→20:08)
[2019-08-14] MEDS ORDERED: ASPIRIN 81 MG TAB.CHEW GT ONE (10:00)
[2019-08-14 11:20] VITALS: BP_SYST 92
[2019-08-14 15:06] LABS: AFP, TUMOR MARKER 6.5 ng/mL (0.0-8.3)
[2019-08-14 15:23] VITALS: BP_SYST 90
[2019-08-14 20:00] VITALS: BP_SYST 102
[2019-08-14 20:06] LABS: ANTI NUCLEAR AB WITH REFLEX Negative (Negative)
[2019-08-15 01:27] VITALS: BP_SYST 99
[2019-08-15] MEDS: IPRATROPIUM BROM 0.5 MG/2.5 ML VIAL.NEB (ATROVENT) INH SCH ×6 (03:00→23:00)
[2019-08-15] MEDS: PIPERACILLIN/TAZO 4.5GM/DEX-IS 100 ML IV SCH ×3 (05:07→21:20)
[2019-08-15] MEDS: NORMAL SALINE 5 ML DISP.SYRIN IVF SCH ×3 (05:08→21:20)
[2019-08-15 07:13] VITALS: BP_SYST 97
[2019-08-15 07:41] VITALS: BP_SYST 97
[2019-08-15 07:42] LABS: C-REACTIVE PROTEIN QUANT 0.7 mg/dL (0-0.5)
[2019-08-15 07:49] LABS: BASOPHILS # (AUTO) 0.1 K/uL (0.0-0.2); BASOPHILS % (AUTO) 0.7 % (0.0-2.0); EOSINOPHILS # (AUTO) 0.6 K/uL (0.0-0.4); EOSINOPHILS % (AUTO) 3.2 % (0.0-4.0); HEMATOCRIT 36.1 % (36-48); HEMOGLOBIN 12.3 g/dL (12.0-16.0); LYMPHOCYTES # (AUTO) 1.1 K/uL (1.0-5.5); LYMPHOCYTES % (AUTO) 6.1 % (20.5-51.5); MEAN CORPUSCULAR HEMOGLOBIN 33 pg (27-31); MEAN CORPUSCULAR HGB CONC 34 % (32-36); MEAN CORPUSCULAR VOLUME 98 fL (79.0-98.0); MONOCYTES # (AUTO) 1.3 K/uL (0.0-1.0); MONOCYTES % (AUTO) 7.1 % (1.7-9.3); NEUTROPHILS # (AUTO) 14.8 K/uL (1.8-7.7); NEUTROPHILS % (AUTO) 82.9 % (40.0-70.0); PLATELET COUNT (AUTO) 478 K/uL (130-430); RED BLOOD CELL COUNT(AUTO) 3.68 MIL/uL (4.2-6.2); RED CELL DISTRIBUTION WIDTH 12.8 % (9.0-15.0); WHITE BLOOD COUNT (AUTO) 17.8 K/uL (4.8-10.8)
[2019-08-15 08:21] LABS: CALCIUM 8.4 mg/dL (8.4-11.0); CREATININE 0.44 mg/dL (0.55-1.30); POTASSIUM 3.6 mmol/L (3.5-5.1)
[2019-08-15] MEDS ORDERED: methylPREDNISolone SOD SUCC 40 MG/ML VIAL IVP SCH (09:00)
[2019-08-15] MEDS: ASPIRIN 81 MG TAB.CHEW GT SCH (09:23)
[2019-08-15] MEDS: ENOXAPARIN SODIUM 40 MG/0.4 ML SYRINGE SUBCUT SCH (09:24)
[2019-08-15] MEDS: HYDROcodone/ACETAMIN 5-325 MG TAB (NORCO/ VICODIN) GT PRN (09:34)
[2019-08-15 09:47] LABS: ERYTHROCYTE SEDIMENTATION RATE 32 MM/HR (0-20)
[2019-08-15 11:21] VITALS: BP_SYST 91
[2019-08-15 15:20] VITALS: BP_SYST 90
[2019-08-15] MEDS: HYDROcodone/ACETAMIN 10-325 MG TAB GT PRN (19:44)
[2019-08-15 20:00] VITALS: BP_SYST 93
[2019-08-16 00:42] VITALS: BP_SYST 89
[2019-08-16] MEDS: HYDROcodone/ACETAMIN 10-325 MG TAB GT PRN ×5 (01:59→22:09)
[2019-08-16] MEDS: IPRATROPIUM BROM 0.5 MG/2.5 ML VIAL.NEB (ATROVENT) INH SCH ×6 (03:00→23:00)
[2019-08-16] MEDS: PIPERACILLIN/TAZO 4.5GM/DEX-IS 100 ML IV SCH ×3 (05:11→21:54)
[2019-08-16] MEDS: NORMAL SALINE 5 ML DISP.SYRIN IVF SCH ×3 (05:11→21:54)
[2019-08-16 08:00] VITALS: BP_SYST 95
[2019-08-16] MEDS: PREDNISONE 20 MG TABLET PO SCH (08:19)
[2019-08-16] MEDS: ASPIRIN 81 MG TAB.CHEW GT SCH (08:20)
[2019-08-16] MEDS: ENOXAPARIN SODIUM 40 MG/0.4 ML SYRINGE SUBCUT SCH (08:21)
[2019-08-16] MEDS: HYDROcodone/ACETAMIN 5-325 MG TAB (NORCO/ VICODIN) GT PRN (11:13)
[2019-08-16 12:49] VITALS: BP_SYST 89
[2019-08-16 18:00] VITALS: BP_SYST 85
[2019-08-16 20:00] VITALS: BP_SYST 89
[2019-08-17 01:39] VITALS: BP_SYST 98
[2019-08-17] MEDS: IPRATROPIUM BROM 0.5 MG/2.5 ML VIAL.NEB (ATROVENT) INH SCH ×4 (03:00→23:00)
[2019-08-17] MEDS: PIPERACILLIN/TAZO 4.5GM/DEX-IS 100 ML IV SCH ×3 (05:50→21:02)
[2019-08-17] MEDS: NORMAL SALINE 5 ML DISP.SYRIN IVF SCH ×3 (06:27→21:03)
[2019-08-17 07:10] LABS: BASOPHILS # (AUTO) 0.2 K/uL (0.0-0.2); EOSINOPHILS # (AUTO) 0.7 K/uL (0.0-0.4); EOSINOPHILS % (AUTO) 3.4 % (0.0-4.0); HEMATOCRIT 37.9 % (36-48); HEMOGLOBIN 12.7 g/dL (12.0-16.0); LYMPHOCYTES # (AUTO) 2.7 K/uL (1.0-5.5); LYMPHOCYTES % (AUTO) 12.5 % (20.5-51.5); MEAN CORPUSCULAR HEMOGLOBIN 33 pg (27-31); MEAN CORPUSCULAR HGB CONC 33 % (32-36); MEAN CORPUSCULAR VOLUME 99 fL (79.0-98.0); MONOCYTES # (AUTO) 1.3 K/uL (0.0-1.0); MONOCYTES % (AUTO) 6.1 % (1.7-9.3); NEUTROPHILS # (AUTO) 16.6 K/uL (1.8-7.7); PLATELET COUNT (AUTO) 447 K/uL (130-430); RED BLOOD CELL COUNT(AUTO) 3.82 MIL/uL (4.2-6.2); RED CELL DISTRIBUTION WIDTH 12.9 % (9.0-15.0); WHITE BLOOD COUNT (AUTO) 21.6 K/uL (4.8-10.8)
[2019-08-17 07:38] LABS: ALBUMIN 2.2 g/dL (3.4-4.8); C-REACTIVE PROTEIN QUANT 0.5 mg/dL (0-0.5); CREATININE 0.47 mg/dL (0.55-1.30); TOTAL BILIRUBIN 0.3 mg/dL (0.0-1.0)
[2019-08-17 07:46] LABS: POTASSIUM 3.8 mmol/L (3.5-5.1)
[2019-08-17 08:03] LABS: CALCIUM 8.7 mg/dL (8.4-11.0)
[2019-08-17 08:10] VITALS: BP_SYST 86
[2019-08-17 08:33] LABS: ERYTHROCYTE SEDIMENTATION RATE 31 MM/HR (0-20)
[2019-08-17] MEDS: PREDNISONE 20 MG TABLET PO SCH (08:37)
[2019-08-17] MEDS: ENOXAPARIN SODIUM 40 MG/0.4 ML SYRINGE SUBCUT SCH (08:38)
[2019-08-17] MEDS: ASPIRIN 81 MG TAB.CHEW GT SCH (08:38)
[2019-08-17] MEDS: HYDROcodone/ACETAMIN 10-325 MG TAB GT PRN ×3 (08:39→21:02)
[2019-08-17 12:21] VITALS: BP_SYST 89
[2019-08-17 15:08] VITALS: BP_SYST 89
[2019-08-17] MEDS: D5NS 1,000 ML IV SCH (15:09)
[2019-08-17 20:00] VITALS: BP_SYST 102
[2019-08-18 00:29] VITALS: BP_SYST 95
[2019-08-18] MEDS: IPRATROPIUM BROM 0.5 MG/2.5 ML VIAL.NEB (ATROVENT) INH SCH ×6 (03:00→23:00)
[2019-08-18] MEDS: D5NS 1,000 ML IV SCH ×3 (03:05→20:34)
[2019-08-18] MEDS: HYDROcodone/ACETAMIN 10-325 MG TAB GT PRN ×3 (03:21→20:34)
[2019-08-18] MEDS: PIPERACILLIN/TAZO 4.5GM/DEX-IS 100 ML IV SCH ×3 (05:29→22:15)
[2019-08-18] MEDS: NORMAL SALINE 5 ML DISP.SYRIN IVF SCH ×3 (05:31→20:34)
[2019-08-18 06:32] LABS: BASOPHILS # (AUTO) 0.1 K/uL (0.0-0.2); BASOPHILS % (AUTO) 0.5 % (0.0-2.0); EOSINOPHILS # (AUTO) 0.5 K/uL (0.0-0.4); EOSINOPHILS % (AUTO) 2.8 % (0.0-4.0); HEMOGLOBIN 11.9 g/dL (12.0-16.0); LYMPHOCYTES # (AUTO) 1.3 K/uL (1.0-5.5); LYMPHOCYTES % (AUTO) 7.8 % (20.5-51.5); MEAN CORPUSCULAR HEMOGLOBIN 33 pg (27-31); MEAN CORPUSCULAR HGB CONC 34 % (32-36); MEAN CORPUSCULAR VOLUME 98 fL (79.0-98.0); MONOCYTES # (AUTO) 1.1 K/uL (0.0-1.0); MONOCYTES % (AUTO) 6.9 % (1.7-9.3); NEUTROPHILS # (AUTO) 13.5 K/uL (1.8-7.7); PLATELET COUNT (AUTO) 389 K/uL (130-430); RED BLOOD CELL COUNT(AUTO) 3.56 MIL/uL (4.2-6.2); RED CELL DISTRIBUTION WIDTH 13.2 % (9.0-15.0); WHITE BLOOD COUNT (AUTO) 16.5 K/uL (4.8-10.8)
[2019-08-18 07:20] LABS: ALBUMIN 2.1 g/dL (3.4-4.8); CALCIUM 7.9 mg/dL (8.4-11.0); CREATININE 0.41 mg/dL (0.55-1.30); TOTAL BILIRUBIN 0.2 mg/dL (0.0-1.0)
[2019-08-18 07:31] LABS: ERYTHROCYTE SEDIMENTATION RATE 24 MM/HR (0-20)
[2019-08-18 07:51] LABS: C-REACTIVE PROTEIN QUANT 0.7 mg/dL (0-0.5)
[2019-08-18 10:02] VITALS: BP_SYST 101
[2019-08-18] MEDS: PREDNISONE 20 MG TABLET GT SCH (10:07)
[2019-08-18] MEDS: ASPIRIN 81 MG TAB.CHEW GT SCH (10:07)
[2019-08-18] MEDS: ENOXAPARIN SODIUM 40 MG/0.4 ML SYRINGE SUBCUT SCH (10:08)
[2019-08-18] MEDS: HYDROcodone/ACETAMIN 5-325 MG TAB (NORCO/ VICODIN) GT PRN (10:10)
[2019-08-18 12:00] VITALS: BP_SYST 97
[2019-08-18] MEDS ORDERED: KCL 40 mEq in 100 mL (PREMIX) 100 ML IV ONE (12:15)
[2019-08-18] MEDS ORDERED: POTASSIUM CHLORIDE 40 MEQ in NS 250 ML IV ONE (12:30)
[2019-08-18 12:46] LABS: ANTI-SMOOTH MUSCLE AB 54 Units (0-19)
[2019-08-18 12:52] LABS: FERRITIN 582 ng/mL (15-150)
[2019-08-18 16:30] VITALS: BP_SYST 108
[2019-08-18 18:00] VITALS: BP_SYST 101
[2019-08-18 20:00] VITALS: BP_SYST 99
[2019-08-19 00:49] VITALS: BP_SYST 76
[2019-08-19] MEDS: IPRATROPIUM BROM 0.5 MG/2.5 ML VIAL.NEB (ATROVENT) INH SCH ×6 (03:00→23:00)
[2019-08-19] MEDS: HYDROcodone/ACETAMIN 10-325 MG TAB GT PRN ×4 (03:04→23:32)
[2019-08-19] MEDS: D5NS 1,000 ML IV SCH ×2 (05:51→18:00)
[2019-08-19] MEDS: PIPERACILLIN/TAZO 4.5GM/DEX-IS 100 ML IV SCH ×2 (05:51→15:36)
[2019-08-19] MEDS: NORMAL SALINE 5 ML DISP.SYRIN IVF SCH ×3 (05:51→21:02)
[2019-08-19 06:47] LABS: BASOPHILS # (AUTO) 0.2 K/uL (0.0-0.2); EOSINOPHILS # (AUTO) 0.4 K/uL (0.0-0.4); EOSINOPHILS % (AUTO) 2.3 % (0.0-4.0); HEMATOCRIT 35.1 % (36-48); HEMOGLOBIN 11.8 g/dL (12.0-16.0); LYMPHOCYTES # (AUTO) 1.6 K/uL (1.0-5.5); LYMPHOCYTES % (AUTO) 9.8 % (20.5-51.5); MEAN CORPUSCULAR HEMOGLOBIN 34 pg (27-31); MEAN CORPUSCULAR HGB CONC 34 % (32-36); MEAN CORPUSCULAR VOLUME 100 fL (79.0-98.0); MONOCYTES # (AUTO) 1.4 K/uL (0.0-1.0); MONOCYTES % (AUTO) 8.8 % (1.7-9.3); NEUTROPHILS # (AUTO) 12.4 K/uL (1.8-7.7); NEUTROPHILS % (AUTO) 78.1 % (40.0-70.0); PLATELET COUNT (AUTO) 377 K/uL (130-430); RED BLOOD CELL COUNT(AUTO) 3.52 MIL/uL (4.2-6.2); RED CELL DISTRIBUTION WIDTH 13.4 % (9.0-15.0); WHITE BLOOD COUNT (AUTO) 15.9 K/uL (4.8-10.8)
[2019-08-19 07:26] LABS: C-REACTIVE PROTEIN QUANT 0.4 mg/dL (0-0.5); CALCIUM 7.7 mg/dL (8.4-11.0); CREATININE 0.38 mg/dL (0.55-1.30); POTASSIUM 3.5 mmol/L (3.5-5.1)
[2019-08-19 08:00] VITALS: BP_SYST 86
[2019-08-19 08:13] LABS: ERYTHROCYTE SEDIMENTATION RATE 19 MM/HR (0-20)
[2019-08-19] MEDS: PREDNISONE 20 MG TABLET GT SCH (09:39)
[2019-08-19] MEDS: ASPIRIN 81 MG TAB.CHEW GT SCH (09:39)
[2019-08-19] MEDS: ENOXAPARIN SODIUM 40 MG/0.4 ML SYRINGE SUBCUT SCH (09:41)
[2019-08-19 12:00] VITALS: BP_SYST 89
[2019-08-19 16:00] VITALS: BP_SYST 87
[2019-08-19 19:00] VITALS: BP_SYST 93
[2019-08-19 20:00] VITALS: BP_SYST 93
[2019-08-20 00:49] VITALS: BP_SYST 103
[2019-08-20] MEDS: D5NS 1,000 ML IV SCH ×2 (02:45→11:16)
[2019-08-20] MEDS: IPRATROPIUM BROM 0.5 MG/2.5 ML VIAL.NEB (ATROVENT) INH SCH ×6 (03:00→22:27)
[2019-08-20] MEDS: NORMAL SALINE 5 ML DISP.SYRIN IVF SCH ×3 (06:06→21:38)
[2019-08-20 07:44] LABS: CREATININE 0.34 mg/dL (0.55-1.30); POTASSIUM 3.1 mmol/L (3.5-5.1)
[2019-08-20 07:48] LABS: ALBUMIN 1.8 g/dL (3.4-4.8); TOTAL BILIRUBIN 0.2 mg/dL (0.0-1.0)
[2019-08-20 07:51] LABS: BASOPHILS # (AUTO) 0.1 K/uL (0.0-0.2); BASOPHILS % (AUTO) 0.5 % (0.0-2.0); EOSINOPHILS # (AUTO) 0.3 K/uL (0.0-0.4); EOSINOPHILS % (AUTO) 1.7 % (0.0-4.0); HEMATOCRIT 34.9 % (36-48); LYMPHOCYTES # (AUTO) 1.3 K/uL (1.0-5.5); LYMPHOCYTES % (AUTO) 8.1 % (20.5-51.5); MEAN CORPUSCULAR HEMOGLOBIN 34 pg (27-31); MEAN CORPUSCULAR HGB CONC 34 % (32-36); MEAN CORPUSCULAR VOLUME 99 fL (79.0-98.0); MONOCYTES # (AUTO) 1.2 K/uL (0.0-1.0); MONOCYTES % (AUTO) 7.8 % (1.7-9.3); NEUTROPHILS # (AUTO) 13.1 K/uL (1.8-7.7); NEUTROPHILS % (AUTO) 81.9 % (40.0-70.0); PLATELET COUNT (AUTO) 363 K/uL (130-430); RED BLOOD CELL COUNT(AUTO) 3.54 MIL/uL (4.2-6.2); RED CELL DISTRIBUTION WIDTH 13.7 % (9.0-15.0)
[2019-08-20 08:00] VITALS: BP_SYST 98
[2019-08-20] MEDS: ASPIRIN 81 MG TAB.CHEW GT SCH (08:10)
[2019-08-20] MEDS: PREDNISONE 20 MG TABLET GT SCH (08:11)
[2019-08-20] MEDS: HYDROcodone/ACETAMIN 10-325 MG TAB GT PRN (08:11)
[2019-08-20] MEDS: ENOXAPARIN SODIUM 40 MG/0.4 ML SYRINGE SUBCUT SCH (08:17)
[2019-08-20 08:35] LABS: CALCIUM 7.8 mg/dL (8.4-11.0)
[2019-08-20 08:43] LABS: ERYTHROCYTE SEDIMENTATION RATE 24 MM/HR (0-20)
[2019-08-20] MEDS ORDERED: NS 500 ML IV ONE (10:15)
[2019-08-20] MEDS ORDERED: POTASSIUM CHLORIDE 20 MEQ TAB.PRT.SR PO ONE (10:15)
[2019-08-20] MEDS ORDERED: POTASSIUM CHLORIDE 20 MEQ/PKT PACKET PO ONE (10:30)
[2019-08-20 11:24] VITALS: BP_SYST 78
[2019-08-20 15:12] VITALS: BP_SYST 94
[2019-08-20 21:41] VITALS: BP_SYST 103
[2019-08-21 01:47] VITALS: BP_SYST 99
[2019-08-21] MEDS: IPRATROPIUM BROM 0.5 MG/2.5 ML VIAL.NEB (ATROVENT) INH SCH ×6 (03:00→23:30)
[2019-08-21] MEDS: NORMAL SALINE 5 ML DISP.SYRIN IVF SCH ×3 (06:00→22:00)
[2019-08-21] MEDS: D5NS 1,000 ML IV SCH ×2 (06:02→08:26)
[2019-08-21 06:53] LABS: BASOPHILS # (AUTO) 0.1 K/uL (0.0-0.2); BASOPHILS % (AUTO) 0.5 % (0.0-2.0); EOSINOPHILS # (AUTO) 0.3 K/uL (0.0-0.4); EOSINOPHILS % (AUTO) 1.5 % (0.0-4.0); HEMATOCRIT 31.5 % (36-48); HEMOGLOBIN 10.7 g/dL (12.0-16.0); LYMPHOCYTES # (AUTO) 1.4 K/uL (1.0-5.5); LYMPHOCYTES % (AUTO) 7.2 % (20.5-51.5); MEAN CORPUSCULAR HEMOGLOBIN 34 pg (27-31); MEAN CORPUSCULAR HGB CONC 34 % (32-36); MEAN CORPUSCULAR VOLUME 99 fL (79.0-98.0); MONOCYTES # (AUTO) 1.4 K/uL (0.0-1.0); MONOCYTES % (AUTO) 7.6 % (1.7-9.3); NEUTROPHILS % (AUTO) 83.2 % (40.0-70.0); PLATELET COUNT (AUTO) 336 K/uL (130-430); RED BLOOD CELL COUNT(AUTO) 3.17 MIL/uL (4.2-6.2); RED CELL DISTRIBUTION WIDTH 13.9 % (9.0-15.0)
[2019-08-21 07:21] LABS: WHITE BLOOD COUNT (AUTO) 19.2 K/uL (4.8-10.8)
[2019-08-21 07:23] LABS: CALCIUM 7.9 mg/dL (8.4-11.0); CREATININE 0.26 mg/dL (0.55-1.30); POTASSIUM 3.7 mmol/L (3.5-5.1)
[2019-08-21 08:00] VITALS: BP_SYST 90
[2019-08-21] MEDS: PREDNISONE 20 MG TABLET GT SCH (08:26)
[2019-08-21] MEDS: ENOXAPARIN SODIUM 40 MG/0.4 ML SYRINGE SUBCUT SCH (08:26)
[2019-08-21] MEDS: ASPIRIN 81 MG TAB.CHEW GT SCH (08:26)
[2019-08-21] MEDS: NACL 0.9% 1,000 ML IV SCH (10:22)
[2019-08-21 12:38] VITALS: BP_SYST 111
[2019-08-21 15:17] VITALS: BP_SYST 111
[2019-08-21 16:30] VITALS: BP_SYST 116
[2019-08-21 20:01] VITALS: BP_SYST 96
[2019-08-22 00:25] VITALS: BP_SYST 108
[2019-08-22] MEDS: IPRATROPIUM BROM 0.5 MG/2.5 ML VIAL.NEB (ATROVENT) INH SCH ×4 (03:00→15:00)
[2019-08-22] MEDS: NORMAL SALINE 5 ML DISP.SYRIN IVF SCH ×2 (05:39→13:47)
[2019-08-22 07:25] LABS: BASOPHILS # (AUTO) 0.1 K/uL (0.0-0.2); BASOPHILS % (AUTO) 0.4 % (0.0-2.0); EOSINOPHILS # (AUTO) 0.3 K/uL (0.0-0.4); EOSINOPHILS % (AUTO) 1.7 % (0.0-4.0); HEMATOCRIT 29.3 % (36-48); LYMPHOCYTES # (AUTO) 1.4 K/uL (1.0-5.5); LYMPHOCYTES % (AUTO) 7.7 % (20.5-51.5); MEAN CORPUSCULAR HEMOGLOBIN 34 pg (27-31); MEAN CORPUSCULAR HGB CONC 34 % (32-36); MEAN CORPUSCULAR VOLUME 99 fL (79.0-98.0); MONOCYTES # (AUTO) 1.5 K/uL (0.0-1.0); MONOCYTES % (AUTO) 8.1 % (1.7-9.3); NEUTROPHILS % (AUTO) 82.1 % (40.0-70.0); PLATELET COUNT (AUTO) 324 K/uL (130-430); RED BLOOD CELL COUNT(AUTO) 2.95 MIL/uL (4.2-6.2); RED CELL DISTRIBUTION WIDTH 14.2 % (9.0-15.0); WHITE BLOOD COUNT (AUTO) 18.3 K/uL (4.8-10.8)
[2019-08-22 07:54] LABS: CREATININE 0.27 mg/dL (0.55-1.30); POTASSIUM 3.4 mmol/L (3.5-5.1)
[2019-08-22 08:05] VITALS: BP_SYST 95
[2019-08-22] MEDS ORDERED: POTASSIUM CHLORIDE 20 MEQ/PKT PACKET GT ONE (08:15)
[2019-08-22] MEDS: ASPIRIN 81 MG TAB.CHEW GT SCH (08:50)
[2019-08-22] MEDS: PREDNISONE 20 MG TABLET GT SCH (08:50)
[2019-08-22] MEDS: ENOXAPARIN SODIUM 40 MG/0.4 ML SYRINGE SUBCUT SCH (08:52)
[2019-08-22] MEDS: NACL 0.9% 1,000 ML IV SCH (10:29)
[2019-08-22 12:40] VITALS: BP_SYST 92
[2019-08-22] MEDS ORDERED: PIPERACILLIN/TAZO 4.5GM/DEX-IS 100 ML IV SCH (14:00)
[2019-08-22 14:12] VITALS: BP_SYST 129; BP_SYST 92
[2019-08-22 16:57] VITALS: BP_SYST 129
== END 2019-08-22 17:30 | DRG 871 ==
LOC: SED 16:55 → SMU 19:22 → STU 08-18 14:00 → SMU 08-20 22:22
PROVIDERS: ADMIT Preventive Medicine Preventive Medicine/Occupational Environmental Medicine; ATTEND Preventive Medicine Preventive Medicine/Occupational Environmental Medicine
DX: A41.9 Sepsis, unspecified organism (principal); J18.9 Pneumonia, unspecified organism; E43 Unspecified severe protein-calorie malnutrition; J44.0 Chronic obstructive pulmonary disease with (acute) lower respiratory infection; E87.2 Acidosis; E87.1 Hypo-osmolality and hyponatremia; Z68.1 Body mass index [BMI] 19.9 or less, adult; C15.9 Malignant neoplasm of esophagus, unspecified; R47.01 Aphasia; J96.10 Chronic respiratory failure, unspecified whether with hypoxia or hypercapnia; R13.10 Dysphagia, unspecified; E88.09 Other disorders of plasma-protein metabolism, not elsewhere classified; E87.6 Hypokalemia; D47.3 Essential (hemorrhagic) thrombocythemia; F41.9 Anxiety disorder, unspecified; R73.9 Hyperglycemia, unspecified; C32.0 Malignant neoplasm of glottis; D64.9 Anemia, unspecified; E83.51 Hypocalcemia; K80.20 Calculus of gallbladder without cholecystitis without obstruction; J38.6 Stenosis of larynx; J38.00 Paralysis of vocal cords and larynx, unspecified; Z85.01 Personal history of malignant neoplasm of esophagus; Z99.81 Dependence on supplemental oxygen; Z93.1 Gastrostomy status; Z92.21 Personal history of antineoplastic chemotherapy; Z87.891 Personal history of nicotine dependence; Z85.21 Personal history of malignant neoplasm of larynx; Z75.1 Person awaiting admission to adequate facility elsewhere; Z93.0 Tracheostomy status
CPT/HCPCS: 36415; 36600; 70490; 70491-TC; 71045; 71250-TC; 71260-TC; 76700-TC; 80048; 80053; 80074; 81003; 82105; 82728; 82784; 82803-TC; 83516; 83605; 85025; 85651-TC; 86038; 86140; 87040-TC; 87081; 87086; 93005; 94640; 94760; 96365; 96367; 99285; G0378; J1030; J1650; J2543; J3370; J3480; J7030; J7040; J7042; J7050; J7512; J7613; Q9967

== ENCOUNTER 2019-08-27 23:10 | Inpatient (IN) | payer OTHER, MEDICAID ==
[~2019-08-27] VITALS: Ht 152.4 cm; Wt 49.0 kg
[2019-08-27 23:15] VITALS: BP_SYST 90
--- NOTE | 2019-08-27 23:30 | NUR ---
Pt BIB BLS from [facility] r/t Bilateral facial redness and swelling with swelling to tongue that onset today. Pt has Trach, secure and patent, respirations even and non-labored, BBS clear. Pt AAOx4, communicates via gestures and writing on paper. Denies c/o pain or discomfort.
--- NOTE | 2019-08-27 23:30 | NUR ---
Patient to ER bed 7 to gown for evaluation. Side rails up. Report given to HERNANDO PHELPS.
--- NOTE | 2019-08-27 23:45 | NUR ---
Dr. Bowden at bedside to assess pt.
[2019-08-28] VITALS (7 sets, daily range): BP systolic 82–105
[2019-08-28] MEDS ORDERED: NACL 0.9% 1,000 ML IV ONE (00:09)
[2019-08-28] MEDS ORDERED: LOVI40 SQ (00:32)
[2019-08-28] MEDS ORDERED: ASA81 PEG (00:32)
[2019-08-28] MEDS ORDERED: ONDA4TAB5 PEG (00:32)
--- NOTE | 2019-08-28 00:33 | NUR ---
Medication reconciliation completed with information provided by EVERTON MALAVE. Any prior medication reconciliation on file was reviewed and corrected.
--- NOTE | 2019-08-28 00:40 | NUR ---
# 20 gauge angiocath placed to RAC. Use of asceptic technique. Opsite placed over site. Blood return noted. Blood for lab drawn from site. Flushed with 10 cc of normal saline. No evidence of infiltration noted. Patient tolerated well.
[2019-08-28] MEDS ORDERED: IOHEXOL 100 ML IV ONE (01:16)
[2019-08-28 01:20] LABS: BASOPHILS # (AUTO) 0.1 K/uL (0.0-0.2); BASOPHILS % (AUTO) 0.5 % (0.0-2.0); EOSINOPHILS # (AUTO) 0.4 K/uL (0.0-0.4); EOSINOPHILS % (AUTO) 3.5 % (0.0-4.0); HEMATOCRIT 29.1 % (36-48); LYMPHOCYTES # (AUTO) 1.1 K/uL (1.0-5.5); LYMPHOCYTES % (AUTO) 9.4 % (20.5-51.5); MEAN CORPUSCULAR HEMOGLOBIN 34 pg (27-31); MEAN CORPUSCULAR HGB CONC 34 % (32-36); MEAN CORPUSCULAR VOLUME 100 fL (79.0-98.0); NEUTROPHILS # (AUTO) 9.4 K/uL (1.8-7.7); NEUTROPHILS % (AUTO) 78.6 % (40.0-70.0); PLATELET COUNT (AUTO) 439 K/uL (130-430); RED BLOOD CELL COUNT(AUTO) 2.92 MIL/uL (4.2-6.2); RED CELL DISTRIBUTION WIDTH 15.6 % (9.0-15.0); WHITE BLOOD COUNT (AUTO) 11.9 K/uL (4.8-10.8)
[2019-08-28 01:31] LABS: CREATININE 0.33 mg/dL (0.55-1.30); POTASSIUM 3.5 mmol/L (3.5-5.1)
[2019-08-28 01:36] LABS: PROTHROMBIN TIME 9.9 SECS (9.5-12.5)
[2019-08-28 01:37] LABS: ALBUMIN 2.4 g/dL (3.4-4.8); TOTAL BILIRUBIN 0.3 mg/dL (0.0-1.0)
--- NOTE | 2019-08-28 02:08 | NUR ---
Pt denies c/o pain or discomfort, no needs verbalized. Pt states that she is unable to void to provide urine specimen.
--- NOTE | 2019-08-28 02:30 | NUR ---
Innercannula of Trach changed per RT per pt request.
--- NOTE | 2019-08-28 02:50 | NUR ---
Pt ambulates to restroom with steady gait. Urine specimen collected and sent to lab.
[2019-08-28 02:55] LABS: BILIRUBIN,URINE NEGATIVE (NEGATIVE); BLOOD, URINE NEGATIVE (NEGATIVE); CLARITY/URINE CLEAR (CLEAR); COLOR,URINE YELLOW (YELLOW); GLUCOSE,URINE NEGATIVE (NEGATIVE); KETONES,URINE NEGATIVE (NEGATIVE); LEUKOCYTE ESTERASE ,URINE NEGATIVE (NEGATIVE); NITRITE, URINE NEGATIVE (NEGATIVE); PROTEIN URINE NEGATIVE (NEGATIVE); UROBILINOGEN,URINE 0.2 (0.2-1.0)
--- NOTE | 2019-08-28 03:53 | NUR ---
called for bed ,spoke to Isabel VERMA,awaiting for bed placement.
--- NOTE | 2019-08-28 05:30 | NUR ---
No needs verbalized at this time. VSS, NAD.
[2019-08-28] MEDS ORDERED: MORPHINE 2 MG/ML INJ. SYRINGE IVP PRN (06:30)
[2019-08-28] MEDS ORDERED: ACETAMINOPHEN 325 MG TABLET GT PRN (06:30)
[2019-08-28] MEDS ORDERED: LORazepam 2 MG/ML VIAL IVP PRN (06:30)
[2019-08-28] MEDS ORDERED: HYDROcodone/ACETAMIN 5-325 MG TAB (NORCO/ VICODIN) GT PRN (06:30)
[2019-08-28] MEDS ORDERED: ONDANSETRON 4 MG ODT TAB GT PRN (06:30)
--- NOTE | 2019-08-28 06:40 | NUR ---
ADMISSION NOTE Received patient from ER via cherelle, received report from NILTON PHELPS. Patient admitted with diagnosis of NECK EDEMA. Patient oriented to hospital routine, call light, toileting and safety-patient verbalized understanding.
--- NOTE | 2019-08-28 07:00 | NUR ---
Patient will be admitted to care of Dr. Stacy. Admitted to Tele unit. Will go to room 110B. Belongings list completed. Summary report printed. Bedside report given to LENIN Diego.
--- NOTE | 2019-08-28 08:00 | NUR ---
Initial Notes- In bed, watching tv, Pt is unable to talk due to swelling on her mouth and neck. Oral care and sunctioning done. has trach. Pen and paper provided for communication. on room air. update plan of care. Call light in reach.Bed alarm on, will monitor.
[2019-08-28] MEDS: D5/0.45 NS 1,000 ML IV SCH ×2 (08:04→16:20)
[2019-08-28] MEDS: methylPREDNISolone SOD SUCC 40 MG/ML VIAL IVP SCH ×2 (08:04→21:03)
[2019-08-28] MEDS: ENOXAPARIN SODIUM 40 MG/0.4 ML SYRINGE SQ SCH (08:07)
--- NOTE | 2019-08-28 09:17 | NUR ---
[phone] S/ W [facility] EXCHANGE
--- NOTE | 2019-08-28 09:21 | NUR ---
CONSULT ONCOLOGY [facility] [phone] S/W [place] OFFICE
--- NOTE | 2019-08-28 09:42 | NUR ---
Trach care done by respiratory.
--- NOTE | 2019-08-28 11:24 | NUR ---
Notes- Seen By Dr. Lea at bedside. Pt has incontinence of urine, changed, pt able to turn self. Call light within reach. Will continue to monitor.
[2019-08-28] MEDS ORDERED: PIPERACILLIN/TAZO 4.5GM/DEX-IS 100 ML IV ONE (11:45)
--- NOTE | 2019-08-28 12:23 | NUR ---
per dietary, they don't carry cans of Pivot feeding, recommends to use pivot 1.5 at 400cc/hr.
--- NOTE | 2019-08-28 12:53 | NUR ---
Feeding started at 40cc/hr of Pivot 1.5 at this time. Will monitor. pt in bed, watching tv. No needs at this time. Call light within reach.
[2019-08-28] MEDS: VANCOMYCIN HCL 1 GM/NS PREMIX 250 ML IV SCH (14:08)
--- NOTE | 2019-08-28 15:40 | NUR ---
In bed, watching tv, Respiratory did trach care and tracheal suctioning, pt tolerated well.
--- NOTE | 2019-08-28 18:36 | NUR ---
Notes- Assisted to the bathroom. ambulate with steady gait. Denies any pain or discomfort at this time. All needs meet through out shift. Will endorse.
--- NOTE | 2019-08-28 20:00 | NUR ---
ASSUMED CARE. RECEIVED ALERT,ORIENTED. RESPONSIVE BUT APHONIC DUE TO PRESENCE OF TRACHEOSTOMY. AFEBRILE, NOT IN ACUTE DISTRESS. DENIES ANY PAIN OR DISCOMFORT. IV FLUIDS D5 1/2 NS INFUSING AT 100 ML/HR VIA RIGHT AC #20 IV LINE. SAO2=96% ON RA VIA TRACH. G-TUBE FEEDING PIVOT 1.5 ODETTE RUNNING AT 40 ML/HR. HEAD OF BED ELEVATED AT LEAST 30 DEGREES AT ALL TIMES. SINUS RHYTHM AT 70'S ON THE MONITOR. VS STABLE, WILL CONTINUE TO MONITOR. NEEDS ATTENDED.
--- NOTE | 2019-08-28 21:03 | NUR ---
DUE MEDICATION GIVEN.
[2019-08-28] MEDS: PIPERACILLIN/TAZO 4.5GM/DEX-IS 100 ML IV SCH (21:54)
--- NOTE | 2019-08-29 | NUR ---
ASLEEP, NOT IN ANY KIND OF DISTRESS. NO PAIN OR DISCOMFORT NOTED. SIDE RAILS UP,CALL LIGHT WITHIN REACH. KEPT WARM AND COMFORTABLE. VS REMAIN STABLE.
[2019-08-29] MEDS: VANCOMYCIN HCL 1 GM/NS PREMIX 250 ML IV SCH ×2 (01:19→13:35)
[2019-08-29] MEDS: D5/0.45 NS 1,000 ML IV SCH ×3 (01:26→21:01)
[2019-08-29 02:05] VITALS: BP_SYST 113
--- NOTE | 2019-08-29 04:00 | NUR ---
ASLEEP,NO SIGNIFICANT CHANGE. REMAINS STABLE AND PAIN FREE.
[2019-08-29] MEDS: PIPERACILLIN/TAZO 4.5GM/DEX-IS 100 ML IV SCH ×3 (06:12→21:25)
--- NOTE | 2019-08-29 07:00 | NUR ---
ENDORSED CARE TO TARAH RN STABLE.
[2019-08-29 07:07] LABS: BASOPHILS % (AUTO) 0.1 % (0.0-2.0); EOSINOPHILS % (AUTO) 0.3 % (0.0-4.0); HEMATOCRIT 27.3 % (36-48); HEMOGLOBIN 9.5 g/dL (12.0-16.0); LYMPHOCYTES # (AUTO) 0.4 K/uL (1.0-5.5); LYMPHOCYTES % (AUTO) 2.7 % (20.5-51.5); MEAN CORPUSCULAR HEMOGLOBIN 35 pg (27-31); MEAN CORPUSCULAR HGB CONC 35 % (32-36); MEAN CORPUSCULAR VOLUME 100 fL (79.0-98.0); MONOCYTES # (AUTO) 0.2 K/uL (0.0-1.0); MONOCYTES % (AUTO) 1.2 % (1.7-9.3); NEUTROPHILS # (AUTO) 14.9 K/uL (1.8-7.7); NEUTROPHILS % (AUTO) 95.7 % (40.0-70.0); PLATELET COUNT (AUTO) 459 K/uL (130-430); RED BLOOD CELL COUNT(AUTO) 2.74 MIL/uL (4.2-6.2); RED CELL DISTRIBUTION WIDTH 15.7 % (9.0-15.0); WHITE BLOOD COUNT (AUTO) 15.6 K/uL (4.8-10.8)
[2019-08-29 07:28] LABS: C-REACTIVE PROTEIN QUANT 3.3 mg/dL (0-0.5); CALCIUM 7.7 mg/dL (8.4-11.0); CREATININE 0.36 mg/dL (0.55-1.30); POTASSIUM 3.1 mmol/L (3.5-5.1); TOTAL BILIRUBIN 0.3 mg/dL (0.0-1.0)
--- NOTE | 2019-08-29 07:30 | NUR ---
opening note patient resting in bed at this time, A/Ox4, no complaints of pain. Iv patent, intact, and infusing fluids as ordered. no adverse side effects noted. On Gt feeding, tolerating well. No nausea, no vomiting noted. No complaints of abdominal pain. No residual noted. Gt intact. On safety and aspiration precautions, HOB kept elevated 3 side rails up. Patient in stable condition, will continue to monitor.
--- NOTE | 2019-08-29 07:58 | NUR ---
PAGED PAGED SAVANA BURRIS AT [phone] SPOKE WITH SHARMIN.
--- NOTE | 2019-08-29 08:05 | NUR ---
Low BP patient noted with BP 86/61, asymptomatic. patient is A/Ox4, able to communicate using paper and pen. pagedwayne DAVIS. New order to Give IV blous x1 noted.
[2019-08-29 08:09] VITALS: BP_SYST 86
[2019-08-29 08:15] LABS: ERYTHROCYTE SEDIMENTATION RATE 55 MM/HR (0-20)
[2019-08-29] MEDS ORDERED: NACL 0.9% 1,000 ML IV ONE (08:15)
--- NOTE | 2019-08-29 08:34 | NUR ---
DC Planning: Received call from Dane at [facility] transfer ctr: provided the transfer decision that dr. Acuña had peer to peer with the [facility] review team and decided not to transfer. The pt. is to have chemo treatments at dr.Dr Acuña's office on Tuesday next week. CM will confirm the appointment. Addendum: 08/29/19 at 1153 by Benny Richards RN Discussed dcp to home with home health with patient and dtr/Tete, both agreed with the discharge plan after HH set up. Per patient, has DME at home, Oxygen concentrator, and 3 portable tanks ( provided by [facility]) and suction catheter ( pt bought ). The patient has O2 available for case of emergency. The pt is on room air typically. The pt is aaox4 and able to make decision for her self. She can ambulate independently, unable to speak due to swollen/mass on face and throat but she can communicate by writing. She has GT for one year and recently changed to a new one. She does not want continuos gt feeding via pump. She wants to give bolus feeding. She said she has done the GT site care and self feeding 3x per day. She has home health nurse visiting but does not remember the agency name. CELESTE called [facility] #[phone] , the visiting nurse but unable to leave message due to his mailbox is full.-- CM will continue to contact [facility]. >>CM confirmed with dtr that she already obtained the appointment for chemo therapy treatments with dr. Acuña on next . >> [facility] information provided to patient and dtr for them to contact medical office for further home assistance program. Addendum: 08/29/19 at 1204 by Benny Richards RN >> Per pt asking to call [facility] # [phone] for the agency service name and contact number.
[2019-08-29] MEDS: ENOXAPARIN SODIUM 40 MG/0.4 ML SYRINGE SQ SCH (08:41)
[2019-08-29] MEDS: methylPREDNISolone SOD SUCC 40 MG/ML VIAL IVP SCH ×2 (08:42→21:01)
[2019-08-29] MEDS: HYDROcodone/ACETAMIN 10-325 MG TAB GT PRN ×2 (08:42→21:58)
--- NOTE | 2019-08-29 09:00 | NUR ---
Medications All morning medications given as ordered. No adverse side effects noted. Patient in stable condition.
--- NOTE | 2019-08-29 09:01 | NUR ---
Nutrition Update Gavin Scale 16 noted. Pt admitted for neck edema. Diet: Pivot 1.5 at 40 ml/hr, Free Water Flush: 100 via GT BMI: 19.6 kg/m2 RD to follow per nutrition care standards.
--- NOTE | 2019-08-29 11:00 | NUR ---
Rounds offered to assist patient to the restroom, patient denied need. No other needs at this time. Patient in stable condition.
[2019-08-29 12:00] VITALS: BP_SYST 101
--- NOTE | 2019-08-29 13:00 | NUR ---
Rounds patient resting in bed at this time, no complaints of pain. Gt feeding tolerating well. No residual noted. No nausea, no vomiting noted.
--- NOTE | 2019-08-29 14:35 | NUR ---
Nutrition Recommendation RD was consulted by pt's primary RN regarding recommendation for bolus feeding. RD referred back to pt's recent admission (08/11/19) RD Nutrition F/U note (08/21/19) and provided recommendations based on estimated nutritional needs. Recommend Pivot 1.5 bolus feeding 5 cans (8 fl oz/237 ml) Q6h, Water Flush: 250 ml Q4h via GT Provides: 1775 kcal/day, 111 gm protein/day, and 1731 ml free water/day Meets: 104% of lower end of estimated caloric needs and 129% of upper end of estimated protein needs RD relayed recommendations to RN who stated that she would inform physician and provide to home health services.
--- NOTE | 2019-08-29 15:00 | NUR ---
Rounds Patient resting in bed at this time, no complaints of pain. Iv patent, intact, and infusing fluids as ordered. No adverse side effects.
--- NOTE | 2019-08-29 15:44 | NUR ---
DC Planning: Confirmed HH acceptance: called [facility] [employer] # [phone]. s/w Gerardo who confirmed pt is under his company care and he is accepting the pt upon discharge. He will send visiting to pt's home tomorrow. MARILUZ/Kirstin is to fax order to fax # [phone]. Addendum: 08/29/19 at 1634 by Benny Richards RN >> CM LVM to Tete ,updated her for discharge pt today 1, homehealth set up with [facility] , and will send nurse to visit the pt tomorrow. 2, The pt refused GTF pump, she wants to do self bolus feeding ( per LENIN Dee note for nutrition recommendation and plan) There will be no additional equipment to set up. The pt already has home oxygen provided by [facility]. 3. Home medication per discharge instruction. CELESTE requested Tete to call LENIN Dee for the discharge and filler picker arrangement for home today. -- LENIN Dee made aware.
--- NOTE | 2019-08-29 16:00 | NUR ---
Trach concern/ Cancel discharge Patient resting in bed, daughter at bedside. Patient stating that she has a clot in her trach, that keeps blocking her trach. Called respiratory therapist, suction provided. Patient asking for whole trach to be changed. Respiratory therapist was able to suction out the clot. Patient O2 sat 100%. Paged Dr. Stacy.
--- NOTE | 2019-08-29 16:10 | NUR ---
Discharge canceled Patient wanting trach to be changed, paged MD new order for patient to be seen by [facility].
[2019-08-29 17:34] VITALS: BP_SYST 89
[2019-08-29 17:35] VITALS: BP_SYST 89
--- NOTE | 2019-08-29 18:30 | NUR ---
Closing note Patient resting in bed at this time, A/Ox4, no complaints of pain. Iv patent, intact, and infusing fluids as ordered. no adverse side effects noted. On Gt feeding, tolerating well. No nausea, no vomiting noted. No complaints of abdominal pain. No residual noted. Gt intact. On safety and aspiration precautions, HOB kept elevated 3 side rails up. Patient in stable condition, all needs met.
--- NOTE | 2019-08-29 19:00 | NUR ---
PLACED PT ON 28% COOL AEROSOL AT THIS TIME. SPO2 AT 99% HR 90. PT SUXN PRN FOR THICK YELLOW SECRETIONS. NO RESP DISTRESS NOTED.
[2019-08-29 20:00] VITALS: BP_SYST 94
--- NOTE | 2019-08-29 20:00 | NUR ---
ASSUMED CARE. RECEIVED ALERT,ORIENTED. AFEBRILE, NOT IN ACUTE DISTRESS DENIES ANY PAIN OR DISCOMFORT. WITH IV FLUID D5 1/2 NS INFUSING AT 100 ML/HR VIA LEFT FOREARM #22 IV LINE. G-TUBE FEEDING PIVOT 1.5 ODETTE RUNNING AT 40 ML/HR. HEAD OF BED ELEVATED AT LEAST 30 DEGREES AT ALL TIMES. TMI6=293% ON 28% FIO2 (5 LPM) HUMIDIFIED OXYGEN VIA TRACH.MASK. SINUS RHYTHM @ 60-70'S/MINUTE ON THE ASSET PROTECTION OFFICER. BP=94/63 WHICH ACCORDING TO PT'S IS HER BASELINE, OTHERWISE,ASYMPTOMATIC. WILL CONTINUE TO MONITOR. NEEDS ATTENDED.
--- NOTE | 2019-08-29 21:01 | NUR ---
DUE MEDICATION GIVEN. NEW BAG OF IV FLUID STARTED.
--- NOTE | 2019-08-29 21:58 | NUR ---
COMPLAINED OF NECK PAIN 910/10. NORCO 10/ MG 1 TABLET GIVEN VIA G-TUBE. Addendum: 08/29/19 at 2349 by [facility] Yann field map technician *PAIN=10
--- NOTE | 2019-08-29 22:28 | NUR ---
Consultation Paged Reason for Consultation: evaluation of trach Was consult called: Y Person who was notified: Florencia Consulting Physician: Dr. Chow (Dr. Fraser is menswear salesperson) Office Messenger Ordering Physician: Wong Harris
[2019-08-30] VITALS: BP_SYST 87
--- NOTE | 2019-08-30 | NUR ---
AWAKE,NOT IN ANY KIND OF DISTRESS. NO PAIN OR DISCOMFORT NOTED SYSTOLIC BP=87 PER OR FIRST ASSIST REGISTERED NURSE. OTHERWISE ASYMPTOMATIC. WILL RECHECK BP.
[2019-08-30 00:30] VITALS: BP_SYST 97
--- NOTE | 2019-08-30 00:30 | NUR ---
PT.S LEG PART ELEVATED BP RECHECKED VIA LEFT THIGH=97/40. REMAINS ASYMPTOMATIC. WILL CLOSELY MONITOR.
[2019-08-30] MEDS: VANCOMYCIN HCL 1 GM/NS PREMIX 250 ML IV SCH ×2 (01:09→12:40)
--- NOTE | 2019-08-30 04:00 | NUR ---
SLEEPING, NOT IN ACUTE DISTRESS. NO SIGNIFICANT CHANGE IN CONDITION. WILL CONTINUE TO MONITOR.
[2019-08-30] MEDS: PIPERACILLIN/TAZO 4.5GM/DEX-IS 100 ML IV SCH ×2 (06:15→14:03)
--- NOTE | 2019-08-30 06:15 | NUR ---
ASLEEP. DUE IV ANTIBIOTIC GIVEN.
--- NOTE | 2019-08-30 07:08 | NUR ---
ENDORSED CARE TO OLGA REVELES.
--- NOTE | 2019-08-30 07:30 | NUR ---
INITIAL NOTE RECEIVED BESIDE SBAR REPORT FROM MOTOR PATROL OPERATOR RN. PT AWAKE, NON-VERBAL, COMMUNICATES WITH WRITING PAD. ASSISTED PT TO RESTROOM, STEADY GAIT. REPOSITIONED PT BACK INTO BED. PT ON BREATHING TX. TOLERATING WELL. DENIES ANY DISCOMFORT OR SOB AT THIS TIME. IVF INFUSING. TUBE FEEDING INFUSING WELL. CALL LIGHT WITHIN REACH, BED IN LOW AND LOCKED POSITION. PT REFUSING BED ALARM AT THIS TIME.
[2019-08-30 08:00] VITALS: BP_SYST 88
[2019-08-30] MEDS: methylPREDNISolone SOD SUCC 40 MG/ML VIAL IVP SCH (08:14)
[2019-08-30] MEDS: D5/0.45 NS 1,000 ML IV SCH (08:14)
[2019-08-30] MEDS: ENOXAPARIN SODIUM 40 MG/0.4 ML SYRINGE SQ SCH (08:19)
--- NOTE | 2019-08-30 09:30 | NUR ---
RN ROUNDS PT RESTING IN BED. PT REQUESTING TO DRINK APPLE JUICE OR HAVE APPLE SAUCE. EDUCATED PT ON SAFETY AND RISK OF ASPIRATION, PT VERBALIZED UNDERSTANDING. INFORMED PT SHE WILL NEED TO BE EVALUATED BY DR. MATOS FOR TRACH EVALUATION.
--- NOTE | 2019-08-30 09:52 | NUR ---
ENT consult called: for Dr. Reza, regarding trache eval, ordered by Dr. Ruperto Stacy, spoke with Cathie. Dr. Reza in surgery, meeting, and clinic today. will not be available till at least 1815 hours tonight. will inform nurse.
--- NOTE | 2019-08-30 11:30 | NUR ---
LENIN ROUND ASSISTED PT TO RESTROOM, STEADY GAIT. REPOSITIONED BACK TO BED. PT TOLERATED WELL. ASSISTED WITH ORAL SUCTIONING.
--- NOTE | 2019-08-30 12:15 | NUR ---
SPOKE W/ DR. MATOS SPOKE WITH MD OVER PHONE. INFORMED MD OF PT MUCUS PLUG AND COMPLAINING OF ISSUES WITH TRACH YESTERDAY. PT BREATHING WELL THROUGH TRACH. NO COMPLAINTS AT THIS TIME. Addendum: 08/30/19 at 1227 by Leyda Francisco RN MD AWARE AND WILL NOT BE ABLE TO SEE PT TODAY, WILL SEE PT TOMORROW IN THE MORNING.
[2019-08-30 12:20] VITALS: BP_SYST 105
[2019-08-30 13:03] LABS: C-REACTIVE PROTEIN QUANT 1.3 mg/dL (0-0.5); CALCIUM 7.6 mg/dL (8.4-11.0); CREATININE 0.38 mg/dL (0.55-1.30); POTASSIUM 3.1 mmol/L (3.5-5.1)
--- NOTE | 2019-08-30 13:12 | NUR ---
PULMO/ENT DR. ALCANTARA EVALUATED PATIENT, PER MD PATIENT RESPIRATORY CLEAR. MD CONSULTED ENT/SURGEON FOR TRACH EVALUATION. SPOKE WITH DR. MATOS IN REGARDS TO TRACH EVAL CONSULT, MD WILL COME SEE PATIENT TOMORROW MORNING.
[2019-08-30 13:16] LABS: BASOPHILS % (AUTO) 0.3 % (0.0-2.0); EOSINOPHILS % (AUTO) 0.1 % (0.0-4.0); HEMATOCRIT 28.5 % (36-48); HEMOGLOBIN 9.8 g/dL (12.0-16.0); LYMPHOCYTES # (AUTO) 0.5 K/uL (1.0-5.5); LYMPHOCYTES % (AUTO) 2.8 % (20.5-51.5); MEAN CORPUSCULAR HEMOGLOBIN 35 pg (27-31); MEAN CORPUSCULAR HGB CONC 34 % (32-36); MEAN CORPUSCULAR VOLUME 101 fL (79.0-98.0); MONOCYTES # (AUTO) 0.3 K/uL (0.0-1.0); NEUTROPHILS # (AUTO) 16.4 K/uL (1.8-7.7); NEUTROPHILS % (AUTO) 94.8 % (40.0-70.0); PLATELET COUNT (AUTO) 485 K/uL (130-430); RED BLOOD CELL COUNT(AUTO) 2.83 MIL/uL (4.2-6.2); RED CELL DISTRIBUTION WIDTH 16.5 % (9.0-15.0); WHITE BLOOD COUNT (AUTO) 17.3 K/uL (4.8-10.8)
[2019-08-30 13:58] LABS: ERYTHROCYTE SEDIMENTATION RATE 50 MM/HR (0-20)
--- NOTE | 2019-08-30 14:00 | NUR ---
DC Planing: BRITTANI Chavez the discharge was held last night dt pt c/o " she has a clot in her trach, that keeps blocking her trach." New order for Pulmo consultation and labs. Pt made aware again , planning to discharge today after blood drawn this pm.
--- NOTE | 2019-08-30 14:23 | NUR ---
SPOKE W/ DR. ALONSO SPOKE WITH MD VIA PHONE, INFORMED MD THAT DR. ALCANTARA SAW THE PATIENT AND DR. MATOS WILL NOT SEE THE PT UNTIL TOMORROW, PT WAS INFORMED WELL. ALSO INFORMED MD OF PTS K 3.1, AND WBC 17.3. NEW ORDERS GIVEN, VERIFIED WITH TELEPHONE READ BACK.
[2019-08-30] MEDS ORDERED: POTASSIUM CHLORIDE 20 MEQ/PKT PACKET GT ONE (14:30)
--- NOTE | 2019-08-30 14:30 | NUR ---
Dietitian Recommendations * Recommend continuing Pivot 1.5 at 40 ml/hr via GT Provides: 1440 kcal/day, 90 gm protein/day, and 729 ml free water/day Meets: 98% of lower end of estimated caloric needs and 122% of lower end of estimated protein needs * Recommend Free Water Flush: 200 ml q6h via GT (provides an additional 800 ml free water/day to better meet estimated fluid needs) LP, RD Please refer to Nutrition Assessment for details. Addendum: 08/30/19 at [address] Amended: Links added.
--- NOTE | 2019-08-30 14:34 | NUR ---
RN ROUNDS INFORMED PT OF DISCHARGE FOR TODAY, PT AGREEABLE. PT WILL BE PICKED UP AROUND 6PM BY DAUGHTER.
[2019-08-30 16:19] VITALS: BP_SYST 93
--- NOTE | 2019-08-30 16:30 | NUR ---
RN ROUNDS PT AWAKE, DENIES ANY SOB OR DISCOMFORT, FAMILY AT BEDSIDE.
[2019-08-30] MEDS ORDERED: CLIN300C11 GT (17:38)
[2019-08-30] MEDS ORDERED: AMOX-426 GT (17:39)
[2019-08-30 17:42] VITALS: BP_SYST 96
--- NOTE | 2019-08-30 19:00 | NUR ---
RN ROUNDS ASSISTED PT TO RESTROOM, STEADY GAIT, REPOSITIONED INTO BED, PT TOLERATED WELL.
--- NOTE | 2019-08-30 19:26 | NUR ---
DISCHARGE NOTE BEDSIDE SBAR REPORT GIVEN TO MEAT GRADER RN. PT AWAKE, DENIES ANY PAIN OR DISCOMFORT. IVF AND TUBE FEEDING INFUSING WELL. PT AWAITING DAUGHTER TO PICK HER UP. PT IS CLEARED TO BE DISCHARGED HOME. CALL LIGHT WITHIN REACH, BED IN LOW AND LOCKED POSITION. PT CARE ENDORSED TO MEAT GRADER RN. Addendum: 08/30/19 at 1929 by Leyda Francisco RN CLOSING NOTE DISREGARD "DISCHARGE NOTE" TITLE
--- NOTE | 2019-08-30 19:48 | NUR ---
D/C Patient Patient given medication reconciliation form and D/C instructions. Exit Care provided. Patient verbalized understanding. MD discussed with patient the results and treatment provided. Discharge to home with daughter via wheelchair. Patient in stable condition, ID band removed. IV catheter removed, intact and dressing applied, no active bleeding. Rx of given. Patient educated on pain management. All belongings sent with patient.
== END 2019-08-30 19:50 | disposition home or self-care (01) | DRG 146 ==
LOC: SED 23:10 → STU 08-28 03:54
PROVIDERS: ADMIT Preventive Medicine Preventive Medicine/Occupational Environmental Medicine; ATTEND Preventive Medicine Preventive Medicine/Occupational Environmental Medicine
DX: C32.1 Malignant neoplasm of supraglottis (principal); J96.20 Acute and chronic respiratory failure, unspecified whether with hypoxia or hypercapnia; E43 Unspecified severe protein-calorie malnutrition; L03.211 Cellulitis of face; E87.1 Hypo-osmolality and hyponatremia; R47.01 Aphasia; C78.01 Secondary malignant neoplasm of right lung; L03.221 Cellulitis of neck; C76.0 Malignant neoplasm of head, face and neck; J44.9 Chronic obstructive pulmonary disease, unspecified; K21.9 Gastro-esophageal reflux disease without esophagitis; D64.9 Anemia, unspecified; F41.9 Anxiety disorder, unspecified; R13.10 Dysphagia, unspecified; E83.51 Hypocalcemia; D47.3 Essential (hemorrhagic) thrombocythemia; R74.0 Nonspecific elevation of levels of transaminase and lactic acid dehydrogenase [LDH]; E88.09 Other disorders of plasma-protein metabolism, not elsewhere classified; E87.6 Hypokalemia; R73.9 Hyperglycemia, unspecified; T38.0X5A Adverse effect of glucocorticoids and synthetic analogues, initial encounter; I89.0 Lymphedema, not elsewhere classified; Z92.3 Personal history of irradiation; Z92.21 Personal history of antineoplastic chemotherapy; Z85.01 Personal history of malignant neoplasm of esophagus; Z85.21 Personal history of malignant neoplasm of larynx; Z93.0 Tracheostomy status; Z93.1 Gastrostomy status; Z87.891 Personal history of nicotine dependence; Z68.21 Body mass index [BMI] 21.0-21.9, adult
CPT/HCPCS: 36415; 70491-TC; 71045; 80048; 80053; 80202-TC; 81003; 83605; 85025; 85610-TC; 85651-TC; 85730-TC; 86140; 87040-TC; 87081; 94760; 96360; 96361; 99285; G0378; J1030; J1650; J2270; J2543; J3370; J7030; Q9967